=== PATIENT | male | born 1980 | race Caucasian/White ===

== ENCOUNTER 2018-09-16 00:31 | Inpatient (IN) | payer OTHER ==
[2018-09-16] MEDS ORDERED: ACETAMINOPHEN TAB 500 MG TAB PO STA (00:54)
[2018-09-16] MEDS ORDERED: IBUPROFEN 600 MG TAB PO STA (00:54)
[2018-09-16] MEDS ORDERED: DIAZEPAM 5 MG/ML 2 ML INJ IVP STA (01:51)
[2018-09-16] MEDS ORDERED: MORPHINE SULFATE 4 MG/ML SYRINGE IVP STA (01:51)
--- NOTE | 2018-09-16 01:56 | ED ---
General Adult HPI - General Source: patient Mode of arrival: ambulatory Limitations: no limitations <Liv Pickard - Last Filed: 09/16/18 03:58> <Deisy Cifuentes - Last Filed: 09/16/18 05:10> - General Chief complaint: Neck Pain/Injury Stated complaint: Neck Pain/Poss Flu Time Seen by Provider: 09/16/18 00:46 - History of Present Illness Initial comments: 37-year-old male patient presents to the emergency department today for evaluation of fever, headache, neck pain. Patient states that symptoms started 2 days ago with progressively worsening neck stiffness. Patient states that he last took Tylenol last evening around 8:00 PM. Denies any medications today. Patient states he has been nauseated but denies any vomiting. Denies any constipation or diarrhea. Denies any abdominal pain. Patient denies any cough, nasal congestion, sore throat, or rash. Denies any recent travel or sick contacts. Patient does report history of viral meningitis 10 years ago, states symptoms are similar. Patient denies any recent shortness breath, chest pain, back pain, numbness, tingling, dizziness, weakness, hematuria, dysuria, urinary urgency, urinary frequency, headache, visual changes, or any other complaints. (Liv Pickard) - Related Data Home Medications Medication Instructions Recorded Confirmed No Known Home Medications 09/16/18 09/16/18 Allergies Allergy/AdvReac Type Severity Reaction Status Date / Time No Known Allergies Allergy Verified 09/16/18 00:40 Review of Systems ROS Other: All systems not noted in ROS Statement are negative. <Liv Pickard - Last Filed: 09/16/18 03:58> ROS Other: All systems not noted in ROS Statement are negative. <Deisy Cifuentes - Last Filed: 09/16/18 05:10> ROS Statement: Those systems with pertinent positive or pertinent negative responses have been documented in the HPI. Past Medical History Past Medical History: No Reported History History of Any Multi-Drug Resistant Organisms: None Reported Past Surgical History: Appendectomy, Ear Surgery Past Psychological History: No Psychological Hx Reported Smoking Status: Current every day smoker Past Alcohol Use History: Occasional Past Drug Use History: None Reported <Liv Pickard - Last Filed: 09/16/18 03:58> General Exam Limitations: no limitations General appearance: alert, in no apparent distress, other (Physical well- developed, well-nourished adult male patient in no acute distress. Vital signs upon presentation are temperature 99.8F, pulse 109, respirations 20, blood pres sure 136/83, pulse ox 97% on room air.) Eye exam: Present: normal appearance, PERRL, EOMI. Absent: scleral icterus, conjunctival injection, periorbital swelling ENT exam: Present: normal exam, normal oropharynx, mucous membranes moist Neck exam: Present: normal inspection, meningismus. Absent: tenderness, lymphadenopathy Respiratory exam: Present: normal lung sounds bilaterally. Absent: respiratory distress, wheezes, rales, rhonchi, stridor Cardiovascular Exam: Present: regular rate, normal rhythm, normal heart sounds. Absent: systolic murmur, diastolic murmur, rubs, gallop, clicks GI/Abdominal exam: Present: soft, normal bowel sounds. Absent: distended, tenderness, guarding, rebound, rigid Neurological exam: Present: alert, oriented X3, CN II-XII intact Psychiatric exam: Present: normal affect, normal mood Skin exam: Present: warm, dry, intact, normal color. Absent: rash <Liv Pickard M - Last Filed: 09/16/18 03:58> Course Vital Signs 09/16/18 09/16/18 09/16/18 00:35 01:05 04:09 Temperature 99.8 F H 100.8 F H 101.5 F H Pulse Rate 109 H 91 Respiratory 20 20 Rate Blood Pressure 136/83 125/67 O2 Sat by Pulse 97 98 Oximetry Procedures - Lumbar Puncture Consent Obtained: verbal consent Indication for Procedure: headache, fever work up Patient Position: sitting upright/leaning forward Skin Prep: Povidone-Iodine 1% Local Anesthetic Used: Lidocaine 1% Spinal Needle Gauge: 20G Spinal Needle Length: 3.5in Interspace Used: L4-L5 Complications: unable to obtain CSF <Deisy Cifuentes - Last Filed: 09/16/18 05:10> Medical Decision Making - Lab Data Result diagrams: 09/16/18 01:50 09/16/18 01:50 - Radiology Data Radiology results: report reviewed, image reviewed <Liv Pickard - Last Filed: 09/16/18 03:58> - Lab Data Result diagrams: 09/16/18 01:50 09/16/18 01:50 <CifuentesDeisy P - Last Filed: 09/16/18 05:10> - Medical Decision Making 37-year-old male patient presented to the emergency department today for evaluation of fever and neck pain. Patient is also reporting headache does exhibit signs of meningismus on physical exam. The patient is neurologically intact with no focal deficits. Labs reviewed and did reveal elevated white blood cell count at 14,000. Chest x-ray did show evidence for possible pneumonia versus atelectasis in the right lower lobe. Patient's CT of the brain did reveal a hyperdense today and the right ventricle or occipital horn could be mass versus blood versus pus. Patient symptoms are consistent with meningitis, my attending did attempt to perform lumbar puncture, patient did not tolerate this well and CSF was not obtained. We did start vancomycin and Rocephin. Patient be admitted to the hospital for further evaluation and monitoring. (Liv Pickard) - Lab Data Lab Results 09/16/18 09/16/18 09/16/18 Range/Units 00:59 01:50 01:50 WBC 14.9 H (3.8-10.6) k/uL RBC 5.32 (4.30-5.90) m/uL Hgb 16.0 (13.0-17.5) gm/dL Hct 48.3 (39.0-53.0) % MCV 90.7 (80.0-100.0) fL MCH 30.2 (25.0-35.0) pg MCHC 33.2 (31.0-37.0) g/dL RDW 13.2 (11.5-15.5) % Plt Count 321 (150-450) k/uL Neutrophils % 69 % Lymphocytes % 22 % Monocytes % 6 % Eosinophils % 1 % Basophils % 0 % Neutrophils # 10.3 H (1.3-7.7) k/uL Lymphocytes # 3.3 (1.0-4.8) k/uL Monocytes # 0.9 (0-1.0) k/uL Eosinophils # 0.1 (0-0.7) k/uL Basophils # 0.1 (0-0.2) k/uL PT (9.0-12.0) sec INR (<1.2) APTT (22.0-30.0) sec Sodium 141 (137-145) mmol/L Potassium 4.1 (3.5-5.1) mmol/L Chloride 106 (98-107) mmol/L Carbon Dioxide 25 (22-30) mmol/L Anion Gap 10 mmol/L BUN 12 (9-20) mg/dL Creatinine 0.93 (0.66-1.25) mg/dL Est GFR (CKD-EPI)AfAm >90 (>60 ml/min/1.73 sqM) Est GFR (CKD-EPI)NonAf >90 (>60 ml/min/1.73 sqM) Glucose 109 H (74-99) mg/dL Plasma Lactic Acid Rob (0.7-2.0) mmol/L Calcium 9.9 (8.4-10.2) mg/dL Total Bilirubin 0.6 (0.2-1.3) mg/dL AST 27 (17-59) U/L ALT 77 H (21-72) U/L Alkaline Phosphatase 64 (38-126) U/L Total Protein 7.6 (6.3-8.2) g/dL Albumin 4.7 (3.5-5.0) g/dL Urine Color Urine Appearance (Clear) Urine pH (5.0-8.0) Ur Specific [place] (1.001-1.035) Urine Protein (Negative) Urine Glucose (UA) (Negative) Urine Ketones (Negative) Urine Blood (Negative) Urine Nitrite (Negative) Urine Bilirubin (Negative) Urine Urobilinogen (<2.0) mg/dL Ur Leukocyte Esterase (Negative) Influenza Type A RNA Not Detected (Not Detectd) Influenza Type B (PCR) Not Detected (Not Detectd) 09/16/18 09/16/18 09/16/18 Range/Units 01:50 01:50 01:50 WBC (3.8-10.6) k/uL RBC (4.30-5.90) m/uL Hgb (13.0-17.5) gm/dL Hct (39.0-53.0) % MCV (80.0-100.0) fL MCH (25.0-35.0) pg MCHC (31.0-37.0) g/dL RDW (11.5-15.5) % Plt Count (150-450) k/uL Neutrophils % % Lymphocytes % % Monocytes % % Eosinophils % % Basophils % % Neutrophils # (1.3-7.7) k/uL Lymphocytes # (1.0-4.8) k/uL Monocytes # (0-1.0) k/uL Eosinophils # (0-0.7) k/uL Basophils # (0-0.2) k/uL PT 9.5 (9.0-12.0) sec INR 0.9 (<1.2) APTT 23.6 (22.0-30.0) sec Sodium (137-145) mmol/L Potassium (3.5-5.1) mmol/L Chloride (98-107) mmol/L Carbon Dioxide (22-30) mmol/L Anion Gap mmol/L BUN (9-20) mg/dL Creatinine (0.66-1.25) mg/dL Est GFR (CKD-EPI)AfAm (>60 ml/min/1.73 sqM) Est GFR (CKD-EPI)NonAf (>60 ml/min/1.73 sqM) Glucose (74-99) mg/dL Plasma Lactic Acid Rob 1.3 (0.7-2.0) mmol/L Calcium (8.4-10.2) mg/dL Total Bilirubin (0.2-1.3) mg/dL AST (17-59) U/L ALT (21-72) U/L Alkaline Phosphatase (38-126) U/L Total Protein (6.3-8.2) g/dL Albumin (3.5-5.0) g/dL Urine Color Yellow Urine Appearance Clear (Clear) Urine pH 7.0 (5.0-8.0) Ur Specific [place] 1.022 (1.001-1.035) Urine Protein Negative (Negative) Urine Glucose (UA) Negative (Negative) Urine Ketones Negative (Negative) Urine Blood Negative (Negative) Urine Nitrite Negative (Negative) Urine Bilirubin Negative (Negative) Urine Urobilinogen <2.0 (<2.0) mg/dL Ur Leukocyte Esterase Negative (Negative) Influenza Type A RNA (Not Detectd) Influenza Type B (PCR) (Not Detectd) - Radiology Data 2 views of the chest are obtained. Report was reviewed in its entirety. Impression by Dr. Mccracken shows right lower lobe opacity, possibly pneumonia versus atelectasis. CT of the brain was obtained. Report was reviewed in its entirety. Impression by Dr. Mccracken shows hyperdensity within the right occipital horn/HMO the right lateral ventricle. Recommend MRI of the pain with contrast rule out blood, pus, mass, or large fibroxanthoma. (Liv Pickard) Disposition Decision to Admit Reason: Admit from EC Decision Date: 09/16/18 Decision Time: 03:53 <Liv Pickard - Last Filed: 09/16/18 03:58> <Deisy Cifuentes - Last Filed: 09/16/18 05:10> Clinical Impression: Meningitis Disposition: ADMITTED IP TO THIS [facility] Condition: Serious Referrals: Cesar Duvall DO [Primary Care Provider] - 1-2 days
--- NOTE | 2018-09-16 02:03 | XR ---
EXAM: XR Chest, 2 Views CLINICAL HISTORY: ITS.REASON XR Reason: Fever TECHNIQUE: Frontal and lateral views of the chest. COMPARISON: No relevant prior studies available. FINDINGS: Lungs: Increased opacity in the right lower lobe. Pleural space: No effusion. Heart: No cardiomegaly. Mediastinum: Unremarkable. Bones/joints: No acute findings. IMPRESSION: Right lower lobe opacity, possibly pneumonia versus atelectasis.
[2018-09-16] MEDS: SODIUM CHLORIDE 0.9% 500 ML 500 ML IV SCH (02:06)
[2018-09-16 02:15] LABS: Appearance,Urine Clear (Clear); Bilirubin,Urine Negative (Negative); Blood,Urine Negative (Negative); Color,Urine Yellow; Glucose,Urine (UA) Negative (Negative); Ketones,Urine Negative (Negative); Leukocyte Esterase,Urine Negative (Negative); Nitrite,Urine Negative (Negative); Protein,Urine Negative (Negative); Specific Gravity,Urine 1.022 (1.001-1.035); Urobilinogen,Urine <2.0 mg/dL (<2.0)
[2018-09-16 02:17] LABS: Basophils # (A) 0.1 k/uL (0-0.2); Basophils % (A) 0 %; Eosinophils # (A) 0.1 k/uL (0-0.7); Eosinophils % (A) 1 %; HCT 48.3 % (39.0-53.0); Lymphocytes # (A) 3.3 k/uL (1.0-4.8); Lymphocytes % (A) 22 %; MCH 30.2 pg (25.0-35.0); MCHC 33.2 g/dL (31.0-37.0); MCV 90.7 fL (80.0-100.0); Mean Platelet Volume 6.4; Monocytes # (A) 0.9 k/uL (0-1.0); Monocytes % (A) 6 %; Neutrophils # (A) 10.3 k/uL (1.3-7.7); Neutrophils % (A) 69 %; Platelet Count 321 k/uL (150-450); RBC 5.32 m/uL (4.30-5.90); RDW 13.2 % (11.5-15.5); WBC 14.9 k/uL (3.8-10.6)
[2018-09-16 02:24] LABS: ALT 77 U/L (21-72); AST 27 U/L (17-59); Albumin 4.7 g/dL (3.5-5.0); Alkaline Phosphatase 64 U/L (38-126); Anion Gap 10 mmol/L; Blood Urea Nitrogen 12 mg/dL (9-20); Calcium 9.9 mg/dL (8.4-10.2); Carbon Dioxide 25 mmol/L (22-30); Chloride 106 mmol/L (98-107); Glucose 109 mg/dL (74-99); Potassium 4.1 mmol/L (3.5-5.1); Sodium 141 mmol/L (137-145); Total Bilirubin 0.6 mg/dL (0.2-1.3); Total Protein 7.6 g/dL (6.3-8.2)
[2018-09-16 02:44] LABS: INR 0.9 (<1.2); Partial Thromboplastin Time 23.6 sec (22.0-30.0); Prothrombin Time 9.5 sec (9.0-12.0)
--- NOTE | 2018-09-16 03:08 | CT ---
EXAM: CT Head Without Intravenous Contrast CLINICAL HISTORY: ITS.REASON CT Reason: headache, concern for meningitis TECHNIQUE: Axial computed tomography images of the head/brain without intravenous contrast. CTDI is 49 mGy and DLP is 1054 mGy-cm. This CT exam was performed using one or more of the following dose reduction techniques: automated exposure control, adjustment of the mA and/or kV according to patient size, and/or use of iterative reconstruction technique. COMPARISON: CT 02/18/2014. FINDINGS: Brain: No hemorrhage, large hypodensity, or mass effect. Ventricles: No hydrocephalus. There is nonspecific hyperdensity within the right occipital horn/atrium. Bones/joints: Unremarkable. Soft tissues: Unremarkable. Sinuses: Unremarkable. Mastoid air cells: Clear. IMPRESSION: There is hyperdensity within the right occipital horn/atrium of the right lateral ventricle. Recommend MRI of the brain with contrast to rule out blood, pus, mass or a large fibroxanthoma. No acute hemorrhage, hydrocephalus, or mass effect. <MYCVCSECTION> [employer] 09/16/18 03:13 Call Doctor Regarding Above results, called Dr. Hermosillo on 09/16 03:12 (-04:00)
[2018-09-16] MEDS ORDERED: VANCOMYCIN IV PER PHARMACY 1 EACH MISC MISCELLANE PRN (03:50)
[2018-09-16] MEDS ORDERED: NALOXONE 0.4 MG/ML 1 ML VIAL IV PRN (03:50)
[2018-09-16] MEDS ORDERED: VANCOMYCIN 2,250 MG in SODIUM CHLORIDE 0.9% 500 ML 500 ML IVPB ONE (05:00)
[2018-09-16] MEDS: MORPHINE SULFATE 4 MG/ML SYRINGE IV PRN ×4 (06:05→22:32)
[2018-09-16] MEDS: ACETAMINOPHEN TAB 325 MG TAB PO PRN (09:35)
[2018-09-16] MEDS: AMPICILLIN 2,000 MG in SODIUM CHLORIDE 0.9% 100 ML IVPB SCH ×4 (14:01→21:47)
[2018-09-16] MEDS: ENOXAPARIN 40 MG/0.4 ML SYRINGE SQ SCH (14:01)
--- NOTE | 2018-09-16 14:23 | MR ---
EXAMINATION TYPE: MR brain wo/w con DATE OF EXAM: 09/16/2018 1:44 PM COMPARISON: CT scan of the brain dated 09/16/2018. HISTORY: meningitis symptoms with abnormal CT TECHNIQUE: Multiplanar, multiecho imaging of the brain was obtained with and without intravenous adm inistration of 13 mL intravenous Gadavist. FINDINGS: Midline structures are unremarkable. There is a normal craniocervical junction. There is some restricted diffusion in the occipital horn of the right lateral ventricle no other area s of restricted diffusion are identified. There are normal vascular flow voids. The lesion in the occipital horn of the right lateral ventricle contains signal voids in this may be vascular. The orbits are unremarkable. There is no evidence of a CP angle mass lesion. There is a 6 mm subcortical FLAIR lesion seen in the superior longitudinal fasciculus on the right. T his is of questionable etiology and significance. There is no mass effect, midline shift or intracranial blood. Following intravenous administration of gadolinium, there are draining veins extending from this lesi on. IMPRESSION: LESION IN THE OCCIPITAL HORN OF THE RIGHT LATERAL VENTRICLE MAY SIMPLY REPRESENT A PROMINENT DVA. I C OULD NOT EXCLUDE A DEVELOPING CHOROID PLEXUS PAPILLOMA.
--- NOTE | 2018-09-16 16:20 | P.CONS ---
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 The patient does relate to a history of about 10 years ago about of viral meningitis and because is felt so much like that he came to hospital quickly. When he was ill in the past to give him 3-4 days to see care and he was quite miserable for some time. The patient relates extremity feel a bit better this afternoon after hydration some pain control. The headache and neck stiffness are starting to improve. He has been febrile but is denying significant rigors. He is having other difficulties such as sinus discomfort. He similar discomforts in his chest no cough or sputum production. Denies abdominal pain. Denies nausea emesis constipation and diarrhea. He's had no urinary symptoms with burning or discomfort. 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 Review of Systems HEENT:as per the HPI significant headache and some neck stiffness that is starting to improve. He has no significant new sinus symptoms but does have a history of significant sinus disease. He does not have significant difficulty in the oral cavity or swallowing Lungs: Denies significant shortness of breath, cough, sputum production, or hemoptysis. Cardiovascular: Denies significant shortness of breath, chest pain, chest wall pain, orthopnea, dyspnea on exertion, syncope Gastrointestinal:Denies nausea, vomiting, diarrhea, constipation, hematemesis, melena, hematochezia. No no significant change of bowel habit noticed. Musculoskeletal: denies significant myalgias or arthralgias. No new joint swelling. Denies new back pain. Skin: Denies new rash or lesions. No new ulcers or wounds are related.. Neuro: Denies headache or visual change. Denies any new onset weakness or difficulty with ambulation. Denies falls or seizures. Psychiatric:Denies anxiety or depression. Endocrine: Denies significant fatigue, denies significant weight loss or weight gain. Past Medical History Past Medical History: No Reported History Additional Past Medical History / Comment(s): Viral meningitis 10 years ago History of Any Multi-Drug Resistant Organisms: None Reported Past Surgical History: Appendectomy, Ear Surgery Past Anesthesia/Blood Transfusion Reactions: No Reported Reaction Past Psychological History: No Psychological Hx Reported Smoking Status: Current every day smoker Past Alcohol Use History: Occasional Additional Past Alcohol Use History / Comment(s): . 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 No recent international travel. No animals in the home. Ill contacts or only at the work environment Past Drug Use History: None Reported Medications and Allergies Home Medications and Allergies Comment(s): Current Medications Acetaminophen (Tylenol Tab) 650 mg PO Q6HR PRN PRN Reason: Mild Pain or Fever > 100.5 Last Admin: 09/16/18 09:35 Dose: 650 mg Documented by: Enoxaparin Sodium (Lovenox) 40 mg SQ DAILY LAQUITA Last Admin: 09/16/18 14:01 Dose: 40 mg Documented by: Vancomycin HCl 1,750 mg/ (Sodium Chloride) 500 mls @ 167 mls/hr IVPB Q8H LAQUITA Ampicillin Sodium 2,000 mg/ (Sodium Chloride) 100 mls @ 200 mls/hr IVPB Q4HR LAQUITA Last Admin: 09/16/18 14:01 Dose: 200 mls/hr Documented by: Ceftriaxone Sodium 2 gm/ (Sodium Chloride) 50 mls @ 100 mls/hr IVPB Q12HR LAQUITA Last Admin: 09/16/18 15:02 Dose: 100 mls/hr Documented by: Acyclovir Sodium 1,000 mg/ (Sodium Chloride) 270 mls @ 270 mls/hr IVPB Q8HR LAQUITA Morphine Sulfate (Morphine Sulfate (Inj)) 4 mg IV Q4HR PRN PRN Reason: Severe Pain Last Admin: 09/16/18 10:51 Dose: 4 mg Documented by: Naloxone HCl (Narcan) 0.2 mg IV Q2M PRN PRN Reason: Opioid Reversal Home Medications Medication Instructions Recorded Confirmed Type No Known Home Medications 09/16/18 09/16/18 History Allergies Allergy/AdvReac Type Severity Reaction Status Date / Time No Known Allergies Allergy Verified 09/16/18 00:40 Physical Exam Vitals: Vital Signs Temp Pulse Pulse Resp BP BP Pulse Ox 09/16/18 12:10 97.9 F 70 20 111/62 94 L 09/16/18 06:31 99.7 F H 86 18 135/61 96 09/16/18 06:09 101.2 F H 89 20 136/77 95 09/16/18 04:09 101.5 F H 91 20 125/67 98 09/16/18 01:05 100.8 F H 09/16/18 00:35 99.8 F H 109 H 20 136/83 97 Intake and Output 09/16/18 09/16/18 09/16/18 06:59 14:59 22:59 Intake Total 1050 500 Balance 1050 500 Intake: Amount of Fluid Infused ( 1050 ml) Intake, IV Titration 500 Amount Vancomycin 1,750 mg In 500 Sodium Chloride 0.9% 500 ml 500 ml @ 167 mls/hr IVPB Q8H [facility] Rx#: [id number] Other: Weight 127.006 kg 37-year-old male in no acute distress but does complain of improving headache HEENT: Anicteric conjunctiva are pink and moist nasal mucosa grossly intact without significant lesions, there is no thrush. Neck: The neck is supple without significant lymphadenopathy or thyromegaly. Lungs: symmetrical air entry is noted, rare expiratory wheezes are scattered but no vince bronchial sounds with dullness or egophony Heart: Regular rate and rhythm with an audible S1-S2, no S3 no S4. There is no significant murmur click or rub, PMI was nondisplaced. Abdomen: obese,Positive bowel sounds soft and nontender without palpable masses or organomegaly. There was no guarding or rebound. Extremities: The upper extremities have excellent pulses they are symmetric, no significant petechiae or telangiectasia. No splinter hemorrhages were noted. The lower extremities are free from significant edema. The peripheral pulses were 2+ and symmetric.patient does have a large muscular build Neuro: Awake alert oriented to person place and time. There are no acute new gross focal sensory motor deficits. Results CBC & Chem 7: 09/16/18 01:50 09/16/18 01:50 Labs: Abnormal Lab Results - Last 24 Hours (Table) 09/16/18 09/16/18 Range/Units 01:50 01:50 WBC 14.9 H (3.8-10.6) k/uL Neutrophils # 10.3 H (1.3-7.7) k/uL Glucose 109 H (74-99) mg/dL ALT 77 H (21-72) U/L Microbiology - Last 24 Hours (Table) 09/16/18 01:50 Urine Culture - Preliminary Urine,Clean Catch Laboratory Results WBC 14.9 k/uL (3.8-10.6) H 09/16/18 01:50 RBC 5.32 m/uL (4.30-5.90) 09/16/18 01:50 Hgb 16.0 gm/dL (13.0-17.5) 09/16/18 01:50 Hct 48.3 % (39.0-53.0) 09/16/18 01:50 MCV 90.7 fL (80.0-100.0) 09/16/18 01:50 MCH 30.2 pg (25.0-35.0) 09/16/18 01:50 MCHC 33.2 g/dL (31.0-37.0) 09/16/18 01:50 RDW 13.2 % (11.5-15.5) 09/16/18 01:50 Plt Count 321 k/uL (150-450) 09/16/18 01:50 Neutrophils % 69 % 09/16/18 01:50 Lymphocytes % 22 % 09/16/18 01:50 Monocytes % 6 % 09/16/18 01:50 Eosinophils % 1 % 09/16/18 01:50 Basophils % 0 % 09/16/18 01:50 Neutrophils # 10.3 k/uL (1.3-7.7) H 09/16/18 01:50 Lymphocytes # 3.3 k/uL (1.0-4.8) 09/16/18 01:50 Monocytes # 0.9 k/uL (0-1.0) 09/16/18 01:50 Eosinophils # 0.1 k/uL (0-0.7) 09/16/18 01:50 Basophils # 0.1 k/uL (0-0.2) 09/16/18 01:50 PT 9.5 sec (9.0-12.0) 09/16/18 01:50 INR 0.9 (<1.2) 09/16/18 01:50 APTT 23.6 sec (22.0-30.0) 09/16/18 01:50 Sodium 141 mmol/L (137-145) 09/16/18 01:50 Potassium 4.1 mmol/L (3.5-5.1) 09/16/18 01:50 Chloride 106 mmol/L (98-107) 09/16/18 01:50 Carbon Dioxide 25 mmol/L (22-30) 09/16/18 01:50 Anion Gap 10 mmol/L 09/16/18 01:50 BUN 12 mg/dL (9-20) 09/16/18 01:50 Creatinine 0.93 mg/dL (0.66-1.25) 09/16/18 01:50 Est GFR (CKD-EPI)AfAm >90 (>60 ml/min/1.73 sqM) 09/16/18 01:50 Est GFR (CKD-EPI)NonAf >90 (>60 ml/min/1.73 sqM) 09/16/18 01:50 Glucose 109 mg/dL (74-99) H 09/16/18 01:50 Plasma Lactic Acid Rob 1.3 mmol/L (0.7-2.0) 09/16/18 01:50 Calcium 9.9 mg/dL (8.4-10.2) 09/16/18 01:50 Total Bilirubin 0.6 mg/dL (0.2-1.3) 09/16/18 01:50 AST 27 U/L (17-59) 09/16/18 01:50 ALT 77 U/L (21-72) H 09/16/18 01:50 Alkaline Phosphatase 64 U/L (38-126) 09/16/18 01:50 Total Protein 7.6 g/dL (6.3-8.2) 09/16/18 01:50 Albumin 4.7 g/dL (3.5-5.0) 09/16/18 01:50 Urine Color Yellow 09/16/18 01:50 Urine Appearance Clear (Clear) 09/16/18 01:50 Urine pH 7.0 (5.0-8.0) 09/16/18 01:50 Ur Specific [place] 1.022 (1.001-1.035) 09/16/18 01:50 Urine Protein Negative (Negative) 09/16/18 01:50 Urine Glucose (UA) Negative (Negative) 09/16/18 01:50 Urine Ketones Negative (Negative) 09/16/18 01:50 Urine Blood Negative (Negative) 09/16/18 01:50 Urine Nitrite Negative (Negative) 09/16/18 01:50 Urine Bilirubin Negative (Negative) 09/16/18 01:50 Urine Urobilinogen <2.0 mg/dL (<2.0) 09/16/18 01:50 Ur Leukocyte Esterase Negative (Negative) 09/16/18 01:50 Influenza Type A RNA Not Detected (Not Detectd) 09/16/18 00:59 Influenza Type B (PCR) Not Detected (Not Detectd) 09/16/18 00:59 Microbiology 09/16/18 01:50 Urine,Clean Catch Urine Culture - Preliminary MRI - head: report reviewed (choroid plexus papilloma is of concern no other acute abnormalities are seen) Assessment and Plan (1) Meningitis Current Visit: Yes Status: Acute Code(s): G03.9 - MENINGITIS, UNSPECIFIED SNOMED Code(s): 8862419 (2) Fever Narrative/Plan: 37-year-old male presents to hospital with relatively sudden onset of headache with some significant discomfort within his neck and neck stiffness and that associated with fever. Because of his history of 10 years ago of viral meningitis he was concerned about recurrence because presented to emergency room typically quickly after the onset of his symptoms. In emergency center for a temperature lumbar puncture were performed. Given his large muscular size they were not successful. Interventional radiology has been requested for guided lumbar puncture. Antibiotic therapy has been initiated and is appropriate. However antiviral th erapy will be added pending further data at time of the lumbar puncture. CT and MRI failed reveal evidence of hydrocephalus and consequently competition from a choroid plexus papilloma seems to be quite unlikely at this point in time. Outpatient follow-up will be scheduled regarding this change. And a lumbar puncture opening pressure should be obtained to further evaluate the possibility of early hydrocephalus. We will request the patient's family to bring in his BiPAP device to help with sleep apnea.blood cultures are pending. Current Visit: Yes Status: Acute Code(s): R50.9 - FEVER, UNSPECIFIED SN OMED Code(s): 213517496 (3) Headache Current Visit: Yes Status: Acute Code(s): R51 - HEADACHE SNOMED Code(s): 46479672 (4) Obstructive sleep apnea Current Visit: Yes Status: Acute Code(s): G47.33 - OBSTRUCTIVE SLEEP APNEA (ADULT) (PEDIATRIC) SNOMED Code(s): 09954676
[2018-09-16] MEDS: VANCOMYCIN 1,750 MG in SODIUM CHLORIDE 0.9% 500 ML 500 ML IVPB SCH ×2 (16:40→22:29)
[2018-09-16] MEDS: ACYCLOVIR SODIUM 1,000 MG in SODIUM CHLORIDE 0.9% 250 ML IVPB SCH (17:38)
--- NOTE | 2018-09-16 19:45 | HP ---
HISTORY AND PHYSICAL DATE OF ADMISSION: 09/16/2018 DATE OF SERVICE: 09/16/2018 PRESENTING COMPLAINT: Fever, chills, neck stiffness. HISTORY OF PRESENTING COMPLAINT: This is a very pleasant 37-year-old patient of Dr. Duvall who is pretty much in good health. The patient did, about 10 years ago, have an episode of what he thinks was a viral meningitis. The patient yesterday started aching all over. Started developing chills, neck stiffness, fever. The patient sat in a dark room in the house and the sunlight was bothering him, though patient states for 1 or 2 weeks he has had some nausea, has been feeling unwell. The patient has a [id number] baby at home who has got a slight cough. The patient was given ceftriaxone in the ER and vancomycin. The patient does feel a shade better. Some attempts were made at a lumbar puncture in the ER but on unsuccessfully. Earlier today Dr. Manning from [place] was consulted. The patient did have some abnormality on the CT scan. I did order an MRI of the brain that shows more of a vascular phenomena. REVIEW OF SYSTEMS: CONSTITUTIONAL: Fever, chills. HEENT: Headache, some photophobia. RESPIRATORY: No respiratory symptoms. CARDIOVASCULAR: None. GASTROINTESTINAL: None. GENITOURINARY: None. MUSCULOSKELETAL: Some neck stiffness. DERMATOLOGICAL: None. HEMATOLOGIC: None. LYMPHATIC: None. PSYCHIATRY: None. NEUROLOGICAL: As above. No focal symptoms. PAST MEDICAL HISTORY: Viral meningitis 10 years ago. PAST SURGICAL HISTORY: Appendectomy, ear surgery. SOCIAL HISTORY: The patient lives with ex and kids. 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 Alcohol occasionally. Does smoke. FAMILY HISTORY: Reviewed, noncontributory presentation. HOME MEDICATIONS: None. ALLERGIES: None. On examination temperature 101.2, pulse 69, respiration 20, blood pressure 136/77, pulse ox 95% on room air. GENERAL APPEARANCE: Well built, BMI 36.9 A bit tired appearing. EYES: Pupils equal. Conjunctivae normal. HENT: External appearance of nose and ears normal. Oral cavity normal. NECK: JVD not raised. Mass not palpable. Respiratory effort normal. LUNGS: Fair air entry. CARDIOVASCULAR: First and second sounds normal. No edema. ABDOMEN: Soft, nontender. Liver and spleen not palpable. LYMPHATICS: No lymph node palpable in neck or axilla. PSYCHIATRY: Alert and oriented x3. Mood and affect slightly tired-appearing. NEUROLOGICAL: Pupils equal. No facial asymmetry. The patient has got neck stiffness, not able to touch his chin to the chest. INVESTIGATIONS: White count 14.9, hemoglobin 16, potassium 4.1. BUN and creatinine is normal. UA negative. Influenza A and B is negative. CT scan of the brain, hyperdensity in the right occipital horn atrium of the right lateral ventricle. MRI of the brain shows lesion in the occipital horn of the right lateral ventricle ( ) contrast. Appears to be more vascular. Chest x-ray film personally reviewed by me shows a bit of an expiratory film with questionable infiltrate right lower base. ASSESSMENT: 1. Patient presents with fever, chills, myalgia, photophobia, neck stiffness, symptoms clinically compatible with acute meningitis. Lumbar puncture was attempted in the ER 3 or 4 times, could not be done. MRI shows possibly a vascular lesion, could be venous. The patient has been started on IV ceftriaxone, vancomycin and ampicillin. Dr. Manning is on the case for Infectious Disease. 2. Obesity, 36.9. 3. Questionable pneumonia on the chest x-ray, though patient has really no respiratory symptoms. PLAN: Continue with current antibiotics. Further input from Dr. Manning. Depending on the clinical course, LP could be done under fluoroscopy. In the meantime, will also add acyclovir. KORINA / JIGNA: [id number] /
[2018-09-17] MEDS: ACYCLOVIR SODIUM 1,000 MG in SODIUM CHLORIDE 0.9% 250 ML IVPB SCH ×3 (00:25→15:46)
[2018-09-17] MEDS: ACETAMINOPHEN TAB 325 MG TAB PO PRN ×3 (00:25→22:15)
[2018-09-17] MEDS: AMPICILLIN 2,000 MG in SODIUM CHLORIDE 0.9% 100 ML IVPB SCH ×5 (02:15→20:28)
[2018-09-17] MEDS: MORPHINE SULFATE 4 MG/ML SYRINGE IV PRN ×3 (02:18→10:33)
[2018-09-17] MEDS: VANCOMYCIN 1,750 MG in SODIUM CHLORIDE 0.9% 500 ML 500 ML IVPB SCH ×2 (06:07→15:26)
[2018-09-17 08:10] LABS: ALT 64 U/L (21-72); AST 21 U/L (17-59); Albumin 3.8 g/dL (3.5-5.0); Alkaline Phosphatase 56 U/L (38-126); Anion Gap 9 mmol/L; Blood Urea Nitrogen 10 mg/dL (9-20); Calcium 8.9 mg/dL (8.4-10.2); Carbon Dioxide 23 mmol/L (22-30); Chloride 106 mmol/L (98-107); Glucose 90 mg/dL (74-99); Potassium 4.1 mmol/L (3.5-5.1); Sodium 138 mmol/L (137-145); Total Bilirubin 0.7 mg/dL (0.2-1.3); Total Protein 6.5 g/dL (6.3-8.2)
[2018-09-17 08:14] LABS: Basophils # (A) 0.1 k/uL (0-0.2); Basophils % (A) 1 %; Eosinophils # (A) 0.3 k/uL (0-0.7); Eosinophils % (A) 2 %; HCT 45.1 % (39.0-53.0); HGB 15.4 gm/dL (13.0-17.5); Lymphocytes # (A) 5.1 k/uL (1.0-4.8); MCH 30.9 pg (25.0-35.0); MCV 90.9 fL (80.0-100.0); Mean Platelet Volume 6.6; Monocytes % (A) 8 %; Neutrophils # (A) 6.5 k/uL (1.3-7.7); Neutrophils % (A) 49 %; Platelet Count 267 k/uL (150-450); RBC 4.96 m/uL (4.30-5.90); RDW 13.1 % (11.5-15.5); WBC 13.1 k/uL (3.8-10.6)
[2018-09-17] MEDS: ENOXAPARIN 40 MG/0.4 ML SYRINGE SQ SCH (08:31)
[2018-09-17 10:21] LABS: Lymphocytes % (A) 39 %
[2018-09-17] MEDS ORDERED: VANCOMYCIN TROUGH DUE 1 EACH MISC MISCELLANE ONE (13:00)
--- NOTE | 2018-09-17 13:42 | P.PN ---
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 The patient does relate to a history of about 10 years ago about of viral meningitis and because is felt so much like that he came to hospital quickly. When he was ill in the past to give him 3-4 days to see care and he was quite miserable for some time. The patient relates extremity feel a bit better this afternoon after hydration some pain control. The headache and neck stiffness are starting to improve. He has been febrile but is denying significant rigors. He is having other difficulties such as sinus discomfort. He similar discomforts in his chest no cough or sputum production. Denies abdominal pain. Denies nausea emesis constipation and diarrhea. He's had no urinary symptoms with burning or discomfort. 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 09/17/2018 the patient was feeling a bit better yesterday afternoon but again is feeling more poorly this afternoon. Headaches continue bit worse. Although he relates his thinking is not clear. I walk in the room and is dark however he is watching TV with agree difficulties. Family has brought his BiPAP unit and relates that he slept considerably better last night.does not believe that he is having chills or rigors low-grade fever only. Objective - Vital Signs Vital signs: Vital Signs Temp 98.2 F 09/17/18 12:39 Pulse 66 09/17/18 12:39 Resp 20 09/17/18 12:39 BP 119/61 09/17/18 12:39 Pulse Ox 95 09/17/18 12:39 Intake & Output 09/16/18 09/17/18 09/17/18 18:59 06:59 18:59 Intake Total 500 1150 Balance 500 1150 Intake: Intake, IV Titration 500 1150 Amount Acyclovir Sodium 1,000 mg 350 In Sodium Chloride 0.9% 250 ml @ 270 mls/hr IVPB Q8HR [facility] Rx#:[id number] Ampicillin 2,000 mg In 200 Sodium Chloride 0.9% 100 ml @ 200 mls/hr IVPB Q4H [facility] Rx#:[id number] Vancomycin 1,750 mg In 500 500 Sodium Chloride 0.9% 500 ml 500 ml @ 167 mls/hr IVPB Q8H [facility] Rx#: [id number] cefTRIAXone 2 gm In 100 Sodium Chloride 0.9% 50 ml @ 100 mls/hr IVPB Q12HR [facility] Rx#:[id number] Other: Voiding Method Toilet Toilet # Voids 1 - Exam 37-year-old male in no acute distress but does complain of improving headache HEENT: Anicteric conjunctiva are pink and moist nasal mucosa grossly intact wi thout significant lesions, there is no thrush. Neck: The neck is supple without significant lymphadenopathy or thyromegaly. Lungs: symmetrical air entry is noted, rare expiratory wheezes are scattered but no vince bronchial sounds with dullness or egophony Heart: Regular rate and rhythm with an audible S1-S2, no S3 no S4. There is no significant murmur click or rub, PMI was nondisplaced. Abdomen: obese,Positive bowel sounds soft and nontender without palpable masses or organomegaly. There was no guarding or rebound. Extremities: The upper extremities have excellent pulses they are symmetric, no significant petechiae or telangiectasia. No splinter hemorrhages were noted. The lower extremities are free from significant edema. The peripheral pulses were 2+ and symmetric.patient does have a large muscular build Neuro: Awake alert oriented to person place and time. There are no acute new gross focal sensory motor deficits. - Labs CBC & Chem 7: 09/17/18 06:52 09/17/18 06:52 Labs: Abnormal Lab Results - Last 24 Hours (Table) 09/17/18 Range/Units 06:52 WBC 13.1 H (3.8-10.6) k/uL Lymphocytes # 5.1 H (1.0-4.8) k/uL Microbiology - Last 24 Hours (Table) 09/16/18 01:50 Blood Culture - Preliminary Blood No Growth after 24 hours 09/16/18 01:50 Urine Culture - Preliminary Urine,Clean Catch Laboratory Results WBC 13.1 k/uL (3.8-10.6) H 09/17/18 06:52 RBC 4.96 m/uL (4.30-5.90) 09/17/18 06:52 Hgb 15.4 gm/dL (13.0-17.5) 09/17/18 06:52 Hct 45.1 % (39.0-53.0) 09/17/18 06:52 MCV 90.9 fL (80.0-100.0) 09/17/18 06:52 MCH 30.9 pg (25.0-35.0) 09/17/18 06:52 MCHC 34.0 g/dL (31.0-37.0) 09/17/18 06:52 RDW 13.1 % (11.5-15.5) 09/17/18 06:52 Plt Count 267 k/uL (150-450) 09/17/18 06:52 Neutrophils % 49 % 09/17/18 06:52 Lymphocytes % 39 % 09/17/18 06:52 Monocytes % 8 % 09/17/18 06:52 Eosinophils % 2 % 09/17/18 06:52 Basophils % 1 % 09/17/18 06:52 Neutrophils # 6.5 k/uL (1.3-7.7) 09/17/18 06:52 Lymphocytes # 5.1 k/uL (1.0-4.8) H 09/17/18 06:52 Monocytes # 1.0 k/uL (0-1.0) 09/17/18 06:52 Eosinophils # 0.3 k/uL (0-0.7) 09/17/18 06:52 Basophils # 0.1 k/uL (0-0.2) 09/17/18 06:52 PT 9.5 sec (9.0-12.0) 09/16/18 01:50 INR 0.9 (<1.2) 09/16/18 01:50 APTT 23.6 sec (22.0-30.0) 09/16/18 01:50 Sodium 138 mmol/L (137-145) 09/17/18 06:52 Potassium 4.1 mmol/L (3.5-5.1) 09/17/18 06:52 Chloride 106 mmol/L (98-107) 09/17/18 06:52 Carbon Dioxide 23 mmol/L (22-30) 09/17/18 06:52 Anion Gap 9 mmol/L 09/17/18 06:52 BUN 10 mg/dL (9-20) 09/17/18 06:52 Creatinine 0.74 mg/dL (0.66-1.25) 09/17/18 06:52 Est GFR (CKD-EPI)AfAm >90 (>60 ml/min/1.73 sqM) 09/17/18 06:52 Est GFR (CKD-EPI)NonAf >90 (>60 ml/min/1.73 sqM) 09/17/18 06:52 Glucose 90 mg/dL (74-99) 09/17/18 06:52 Plasma Lactic Acid Rob 1.3 mmol/L (0.7-2.0) 09/16/18 01:50 Calcium 8.9 mg/dL (8.4-10.2) 09/17/18 06:52 Total Bilirubin 0.7 mg/dL (0.2-1.3) 09/17/18 06:52 AST 21 U/L (17-59) 09/17/18 06:52 ALT 64 U/L (21-72) 09/17/18 06:52 Alkaline Phosphatase 56 U/L (38-126) 09/17/18 06:52 Total Protein 6.5 g/dL (6.3-8.2) 09/17/18 06:52 Albumin 3.8 g/dL (3.5-5.0) 09/17/18 06:52 Procalcitonin 0.03 ng/mL (0.02-0.09) 09/16/18 16:00 Urine Color Yellow 09/16/18 01:50 Urine Appearance Clear (Clear) 09/16/18 01:50 Urine pH 7.0 (5.0-8.0) 09/16/18 01:50 Ur Specific Bud 1.022 (1.001-1.035) 09/16/18 01:50 Urine Protein Negative (Negative) 09/16/18 01:50 Urine Glucose (UA) Negative (Negative) 09/16/18 01:50 Urine Ketones Negative (Negative) 09/16/18 01:50 Urine Blood Negative (Negative) 09/16/18 01:50 Urine Nitrite Negative (Negative) 09/16/18 01:50 Urine Bilirubin Negative (Negative) 09/16/18 01:50 Urine Urobilinogen <2.0 mg/dL (<2.0) 09/16/18 01:50 Ur Leukocyte Esterase Negative (Negative) 09/16/18 01:50 Influenza Type A RNA Not Detected (Not Detectd) 09/16/18 00:59 Influenza Type B (PCR) Not Detected (Not Detectd) 09/16/18 00:59 Microbiology 09/16/18 01:50 Blood Blood Culture - Preliminary No Growth after 24 hours 09/16/18 01:50 Urine,Clean Catch Urine Culture - Preliminary Assessment and Plan (1) Meningitis Current Visit: Yes Status: Acute Code(s): G03.9 - MENINGITIS, UNSPECIFIED SNOMED Code(s): 3014001 (2) Fever Narrative/Plan: 37-year-old male presents to hospital with relatively sudden onset of headache with some significant discomfort within his neck and neck stiffness and that associated with fever. Because of his history of 10 years ago of viral meningitis he was concerned about recurrence because presented to emergency room typically quickly after the onset of his symptoms. In emergency center for a temperature lumbar puncture were performed. Given his large muscular size they were not successful. Interventional radiology has been requested for guided lumbar puncture. Antibiotic therapy has been initiated and is appropriate. However antiviral therapy will be added pending further data at time of the lumbar puncture. CT and MRI failed reveal evidence of hydrocephalus and consequently competition from a choroid plexus papilloma seems to be quite unlikely at this point in time . Outpatient follow-up will be scheduled regarding this change. And a lumbar puncture opening pressure should be obtained to further evaluate the possibility of early hydrocephalus. We will request the patient's family to bring in his BiPAP device to help with sleep apnea.blood cultures are pending. 09/17/2018 patient was feeling a bit better now again is having some worsening of the headache. The patient's interventional radiology lumbar puncture is still being planned. Ensuring an opening pressure is obtained has been requested given the likelihood of the choroid plexus papilloma. Routine studies of course will also be helpful. Given that he has had one prior bout PCR for HSV 1HSV2 were also requested. continue current antibiotic and antiviral therapy pending a lumbar puncture. Plan nicotine patch in that his worsening headache could be related somewhat to his nicotine withdrawal. Toradol will also be added to try to improve his discomforts. Current Visit: Yes Status: Acute Code(s): R50.9 - FEVER, UNSPECIFIED SNOMED Code(s): 851034741 (3) Headache Current Visit: Yes Status: Acute Code(s): R51 - HEADACHE SNOMED Code(s): 27239202 (4) Obstructive sleep apnea Current Visit: Yes Status: Acute Code(s): G47.33 - OBSTRUCTIVE SLEEP APNEA (ADULT) (PEDIATRIC) SNOMED Code(s): 12006717
[2018-09-17] MEDS: NICOTINE 14MG/24HR PATCH TRANSDERM SCH (14:41)
[2018-09-17] MEDS: KETOROLAC 30 MG/ML 1 ML VIAL IVP SCH ×2 (14:41→17:26)
[2018-09-17] MEDS: VANCOMYCIN 2,000 MG in SODIUM CHLORIDE 0.9% 500 ML 500 ML IVPB SCH ×2 (15:46→23:13)
--- NOTE | 2018-09-17 23:50 | PN ---
PROGRESS NOTE DATE OF SERVICE: September 17, 2018. PRESENTING COMPLAINT: Headaches. INTERVAL HISTORY: This patient admitted with clinical picture of meningitis. A lumbar puncture was unsuccessful in the ER. The patient's fevers have been down. Did tolerate some diet. Headache is still present. Neck stiffness has greatly improved. Looks a bit more cheerful. REVIEW OF SYSTEMS: Done for constitutional, cardiovascular, GI, pulmonary; relevant findings as above. Photophobia is greatly improved. CURRENT MEDICATIONS: Reviewed that include IV acyclovir, IV ampicillin, IV ceftriaxone, IV vancomycin. EXAMINATION: VITAL SIGNS: Afebrile. Pulse 67, respiration 20, blood pressure 109/61, pulse ox 95% on room air. GENERAL APPEARANCE: Lying in bed, a bit more awake. EYES: Pupils equal. Conjunctivae normal. NECK: JVD not raised. Mass not palpable. RESPIRATORY: Effort normal. LUNGS are clear. CARDIOVASCULAR: First and second sounds normal. No edema. ABDOMEN: Soft, nontender. Liver and spleen not palpable. NEUROLOGICAL: No neck stiffness. INVESTIGATIONS: White count 13.1, potassium 4.1. ASSESSMENT: 1. Acute meningitis. At this point, cannot tell if it is vascular or viral. 2. Obesity BMI 36.9. 3. Venous abnormality in the right lateral ventricle. PLAN: Care was discussed with Dr. Manning. We will schedule Interventional Radiology to do a lumbar puncture including PCR for HSV will be requested. In the meantime, patient is clinically looking better. Care was discussed with the patient. Follow. MMODL / IJN: [id number] /
[2018-09-18] MEDS: ACYCLOVIR SODIUM 1,000 MG in SODIUM CHLORIDE 0.9% 250 ML IVPB SCH ×3 (00:15→16:13)
[2018-09-18] MEDS: KETOROLAC 30 MG/ML 1 ML VIAL IVP SCH ×5 (00:16→23:59)
[2018-09-18] MEDS: AMPICILLIN 2,000 MG in SODIUM CHLORIDE 0.9% 100 ML IVPB SCH ×7 (02:24→22:10)
[2018-09-18] MEDS: ACETAMINOPHEN TAB 325 MG TAB PO PRN ×2 (05:05→12:53)
[2018-09-18] MEDS: VANCOMYCIN 2,000 MG in SODIUM CHLORIDE 0.9% 500 ML 500 ML IVPB SCH ×2 (06:48→16:13)
[2018-09-18] MEDS: NICOTINE 14MG/24HR PATCH TRANSDERM SCH (08:28)
[2018-09-18] MEDS: MORPHINE SULFATE 4 MG/ML SYRINGE IV PRN (13:04)
--- NOTE | 2018-09-18 15:18 | FL ---
"EXAMINATION TYPE: FL guided lumbar puncture LP DATE OF EXAM: 09/18/2018 COMPARISON: NONE HISTORY: History of bacterial meningitis 10 years ago with recurrent severe acute headache on admissi on 2-3 days earlier. TECHNIQUE: Fluoroscopic assisted lumbar puncture. FINDINGS: Fluoroscopic guidance was provided during lumbar puncture procedure performed by myself. A total of 34 seconds of fluoroscopic time was utilized during the procedure and 0 spot images are ac quired. Procedure is explained to patient. Informed consent is obtained. Overlying skin is cleansed with Beta dine. Using fluoroscopic guidance under paraspinal approach L3 level is targeted with successful firs t passage into spinal canal. Opening pressure is measured over 55 mmHg, our meter does not record past this number. At this point fluid is collected as requested. Fluid is cloudy throughout. Then needle is withdrawn. Patient tolerated procedure well without any immediate complication. Patient was sent back to floor f or further monitoring. Vital signs were monitored before during and after procedure and stable. IMPRESSION: Successful fluoroscopic assisted lumbar puncture for fluid attainment. Elevated opening p ressures with cloudy CSF fluid obtained grossly. Full pathology results to follow. A Yellow level critical message alert has been initiated for Drew Dan MD via the Milk 36 0 | Critical Results System on 09/18/2018 3:15 PM. This message alert has been sent to Drew Dan MD via the preferences provided by the clinician for the receipt of Radiology Critical Findings. Mess age ID [id number]."
[2018-09-18 18:13] LABS: Glucose,CSF 50 mg/dL (40-70); Total Protein,CSF 81 mg/dL (12-60)
[2018-09-18 18:26] LABS: Appearance,CSF Blood Tinged; CSF Tube Number 4; CSF Tube Volume 6; Nucleated Cells, CSF 70 u/L (0-5); Red Blood Cell,CSF 4145 u/L (0-10)
[2018-09-18 18:37] LABS: Diff, Total Cells Cnt, CSF 100; Mononuclear WBC,CSF 83 %; Polynuclear WBC,CSF 17 %; Red Blood Cell, CSF Crenated 0 %; Red Blood Cell, CSF Fresh 100 %
--- NOTE | 2018-09-18 20:50 | PN ---
PROGRESS NOTE DATE OF SERVICE: 09/18/2018 PRESENTING COMPLAINT: Headache. INTERVAL HISTORY: This patient was admitted with fever, headache, neck stiffness. I saw this patient this morning. He is feeling better. Headache is much improved. Neck stiffness much improved. Did tolerate some diet. More awake. Overall feeling much better. Fevers have been down. Patient is due to go down for lumbar puncture this afternoon. REVIEW OF SYSTEMS: Done for constitutional, cardiovascular, GI, pulmonary; relevant findings as above. Overall doing much better. CURRENT MEDICATIONS: Reviewed. They include: 1. IV acyclovir. 2. Ampicillin. 3. Ceftriaxone. 4. Vancomycin. PHYSICAL EXAMINATION: Temperature 98.2, pulse 66, respirations 16, blood pressure 122/63, pulse ox 97% on room air. GENERAL APPEARANCE: Lying in bed, far more awake. Looking better. EYES: Pupils equal. Conjunctivae normal. NECK: JVD not raised. Mass not palpable. RESPIRATORY: Effort normal. Lungs are clear. CARDIOVASCULAR: First and second sounds normal. No edema. ABDOMEN: Soft, non-tender. Liver and spleen not palpable. PSYCHIATRY: Alert and oriented x3. Mood and affect normal. Neck stiffness has resolved. INVESTIGATIONS: CSF fluid came back this evening showing RBC 4145, total nucleated cells 70, CSF protein 81, glucose 50. CSF Gram stain showing many polymorphonuclear leukocytes. ASSESSMENT: 1. Acute meningitis, possibly bacterial, given the cloudy fluid, and it may be noted that this CSF is already after receiving 24 hours of antibiotics. 2. Obesity with body mass index 36.9. 3. Venous abnormality in the right lateral ventricle. PLAN: I did inform Dr. Manning of the initial CSF cloudy finding. He will follow up on the same. The patient is well covered with current antibiotics and is clinically doing better. Will continue with the same. Further titration of antibiotics based on Gram stain and culture. Repeat labs in the morning. Will follow. MMODL / IJN: [id number] /
--- NOTE | 2018-09-18 22:55 | P.PN ---
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 The patient does relate to a history of about 10 years ago about of viral meningitis and because is felt so much like that he came to hospital quickly. When he was ill in the past to give him 3-4 days to see care and he was quite miserable for some time. The patient relates extremity feel a bit better this afternoon after hydration some pain control. The headache and neck stiffness are starting to improve. He has been febrile but is denying significant rigors. He is having other difficulties such as sinus discomfort. He similar discomforts in his chest no cough or sputum production. Denies abdominal pain. Denies nausea emesis constipation and diarrhea. He's had no urinary symptoms with burning or discomfort. 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 09/17/2018 the patient was feeling a bit better yesterday afternoon but again is feeling more poorly this afternoon. Headaches continue bit worse. Although he relates his thinking is not clear. I walk in the room and is dark however he is watching TV with agree difficulties. Family has brought his BiPAP unit and relates that he slept considerably better last night.does not believe that he is having chills or rigors low-grade fever only. 09/18/2018 status post lumbar puncture patient is feeling considerably better. The significant and severe headache is improved. Appetite is improved. Denies any acute neurological problems. No further fevers. Is currently supine post procedure to prevent postprocedural headache. Objective - Vital Signs Vital signs: Vital Signs Temp 98.2 F 09/18/18 21:00 Pulse 80 09/18/18 21:00 Resp 18 09/18/18 21:00 BP 122/59 09/18/18 21:00 Pulse Ox 97 09/18/18 21:00 Intake & Output 09/18/18 09/18/18 09/19/18 06:59 18:59 06:59 Intake Total 100 100 Balance 100 100 Intake: Intake, IV Titration 100 100 Amount Ampicillin 2,000 mg In 100 100 Sodium Chloride 0.9% 100 ml @ 200 mls/hr IVPB Q4H [facility] Rx#:[id number] Other: Voiding Method Toilet Toilet # Voids 1 2 - Exam 37-year-old male in no acute distress but does complain of improving headache HEENT: Anicteric conjunctiva are pink and moist nasal mucosa grossly intact without significant lesions, there is no thrush. Neck: The neck is supple without significant lymphadenopathy or thyromegaly. Lungs: symmetrical air entry is noted, rare expiratory wheezes are scattered but no vince bronchial sounds with dullness or egophony Heart: Regular rate and rhythm with an audible S1-S2, no S3 no S4. There is no significant murmur click or rub, PMI was nondisplaced. Abdomen: obese,Positive bowel sounds soft and nontender without palpable masses or organomegaly. There was no guarding or rebound. Extremities: The upper extremities have excellent pulses they are symmetric, no significant petechiae or telangiectasia. No splinter hemorrhages were noted. The lower extremities are free from significant edema. The peripheral pulses were 2+ and symmetric.patient does have a large muscular build Neuro: Awake alert oriented to person place and time. There are no acute new gross focal sensory motor deficits. - Labs CBC & Chem 7: 09/17/18 06:52 09/17/18 06:52 Labs: Abnormal Lab Results - Last 24 Hours (Table) 09/18/18 Range/Units 14:50 CSF RBC 4145 H (0-10) u/L CSF Tot Nucleated Cells 70 H* (0-5) u/L CSF Total Protein 81 H (12-60) mg/dL Microbiology - Last 24 Hours (Table) 09/18/18 14:05 Anaerobic Culture - Preliminary Cerebral Spinal Fluid 09/18/18 14:50 CSF Gram Stain - Preliminary Cerebral Spinal Fluid 09/16/18 01:50 Blood Culture - Preliminary Blood No Growth after 48 hours Laboratory Results WBC 13.1 k/uL (3.8-10.6) H 09/17/18 06:52 RBC 4.96 m/uL (4.30-5.90) 09/17/18 06:52 Hgb 15.4 gm/dL (13.0-17.5) 09/17/18 06:52 Hct 45.1 % (39.0-53.0) 09/17/18 06:52 MCV 90.9 fL (80.0-100.0) 09/17/18 06:52 MCH 30.9 pg (25.0-35.0) 09/17/18 06:52 MCHC 34.0 g/dL (31.0-37.0) 09/17/18 06:52 RDW 13.1 % (11.5-15.5) 09/17/18 06:52 Plt Count 267 k/uL (150-450) 09/17/18 06:52 Neutrophils % 49 % 09/17/18 06:52 Lymphocytes % 39 % 09/17/18 06:52 Monocytes % 8 % 09/17/18 06:52 Eosinophils % 2 % 09/17/18 06:52 Basophils % 1 % 09/17/18 06:52 Neutrophils # 6.5 k/uL (1.3-7.7) 09/17/18 06:52 Lymphocytes # 5.1 k/uL (1.0-4.8) H 09/17/18 06:52 Monocytes # 1.0 k/uL (0-1.0) 09/17/18 06:52 Eosinophils # 0.3 k/uL (0-0.7) 09/17/18 06:52 Basophils # 0.1 k/uL (0-0.2) 09/17/18 06:52 PT 9.5 sec (9.0-12.0) 09/16/18 01:50 INR 0.9 (<1.2) 09/16/18 01:50 APTT 23.6 sec (22.0-30.0) 09/16/18 01:50 Sodium 138 mmol/L (137-145) 09/17/18 06:52 Potassium 4.1 mmol/L (3.5-5.1) 09/17/18 06:52 Chloride 106 mmol/L (98-107) 09/17/18 06:52 Carbon Dioxide 23 mmol/L (22-30) 09/17/18 06:52 Anion Gap 9 mmol/L 09/17/18 06:52 BUN 10 mg/dL (9-20) 09/17/18 06:52 Creatinine 0.74 mg/dL (0.66-1.25) 09/17/18 06:52 Est GFR (CKD-EPI)AfAm >90 (>60 ml/min/1.73 sqM) 09/17/18 06:52 Est GFR (CKD-EPI)NonAf >90 (>60 ml/min/1.73 sqM) 09/17/18 06:52 Glucose 90 mg/dL (74-99) 09/17/18 06:52 Plasma Lactic Acid Rob 1.3 mmol/L (0.7-2.0) 09/16/18 01:50 Calcium 8.9 mg/dL (8.4-10.2) 09/17/18 06:52 Total Bilirubin 0.7 mg/dL (0.2-1.3) 09/17/18 06:52 AST 21 U/L (17-59) 09/17/18 06:52 ALT 64 U/L (21-72) 09/17/18 06:52 Alkaline Phosphatase 56 U/L (38-126) 09/17/18 06:52 Total Protein 6.5 g/dL (6.3-8.2) 09/17/18 06:52 Albumin 3.8 g/dL (3.5-5.0) 09/17/18 06:52 Procalcitonin 0.03 ng/mL (0.02-0.09) 09/16/18 16:00 Urine Color Yellow 09/16/18 01:50 Urine Appearance Clear (Clear) 09/16/18 01:50 Urine pH 7.0 (5.0-8.0) 09/16/18 01:50 Ur Specific [place] 1.022 (1.001-1.035) 09/16/18 01:50 Urine Protein Negative (Negative) 09/16/18 01:50 Urine Glucose (UA) Negative (Negative) 09/16/18 01:50 Urine Ketones Negative (Negative) 09/16/18 01:50 Urine Blood Negative (Negative) 09/16/18 01:50 Urine Nitrite Negative (Negative) 09/16/18 01:50 Urine Bilirubin Negative (Negative) 09/16/18 01:50 Urine Urobilinogen <2.0 mg/dL (<2.0) 09/16/18 01:50 Ur Leukocyte Esterase Negative (Negative) 09/16/18 01:50 CSF Tube Number 4 09/18/18 14:50 CSF Volume 6 09/18/18 14:50 CSF Appearance Blood Tinged 09/18/18 14:50 CSF Color [place] 09/18/18 14:50 CSF RBC 4145 u/L (0-10) H 09/18/18 14:50 CSF Tot Nucleated Cells 70 u/L (0-5) H* 09/18/18 14:50 CSF Mononuclear WBCs % 83 % 09/18/18 14:50 CSF Polynuclear WBCs % 17 % 09/18/18 14:50 CSF Crenated Cells 0 % 09/18/18 14:50 CSF Fresh RBCs 100 % 09/18/18 14:50 CSF Glucose 50 mg/dL (40-70) 09/18/18 14:50 CSF Total Protein 81 mg/dL (12-60) H 09/18/18 14:50 Vancomycin Trough 13.6 ug/mL 09/17/18 13:19 Influenza Type A RNA Not Detected (Not Detectd) 09/16/18 00:59 Influenza Type B (PCR) Not Detected (Not Detectd) 09/16/18 00:59 Microbiology 09/18/18 14:05 Cerebral Spinal Fluid Anaerobic Culture - Preliminary 09/18/18 14:50 Cerebral Spinal Fluid CSF Gram Stain - Preliminary 09/16/18 01:50 Blood Blood Culture - Preliminary No Growth after 48 hours 09/16/18 01:50 Urine,Clean Catch Urine Culture - Final Assessment and Plan (1) Meningitis Current Visit: Yes Status: Acute Code(s): G03.9 - MENINGITIS, UNSPECIFIED SNOMED Code(s): 4224789 (2) Fever Narrative/Plan: 37-year-old male presents to hospital with relatively sudden onset of headache with some significant discomfort within his neck and neck stiffness and that associated with fever. Because of his history of 10 years ago of viral meningitis he was concerned about recurrence because presented to emergency room typically quickly after the onset of his symptoms. In emergency center for a temperature lumbar puncture were performed. Given his large muscular size they were not successful. Interventional radiology has been requested for guided lumbar puncture. Antibiotic therapy has been initiated and is appropriate. However antiviral therapy will be added pending further data at time of the lumbar puncture. CT and MRI failed reveal evidence of hydrocephalus and consequently competition from a choroid plexus papilloma seems to be quite unlikely at this point in time. Outpatient follow-up will be scheduled regarding this change. And a lumbar puncture opening pressure should be obtained to further evaluate the possibility of early hydrocephalus. We will request the patient's family to bring in his BiPAP device to help with sleep apnea.blood cultures are pending. 09/17/2018 patient was feeling a bit better now again is having some worsening of the headache. The patient's interventional radiology lumbar puncture is still being planned. Ensuring an opening pressure is obtained has been requested given the likelihood of the choroid plexus papilloma. Routine studies of course will also be helpful. Given that he has had one prior bout PCR for HSV 1HSV2 were also requested. continue current antibiotic and antiviral therapy pending a lumbar puncture. Plan nicotine patch in that his worsening headache could be related somewhat to his nicotine withdrawal. Toradol will also be added to try to improve his discomforts. 09/18/2018 lumbar puncture has been performed and has allowed some relief of his headache. Studies are pending. Opening pressure was greater than 55. 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 However difficult to explain the fever at admission. Bacterial viral and fungal cultures are pending at this time. Continue current antibiotic and antiviral therapy. Current Visit: Yes Status: Acute Code(s): R50.9 - FEVER, UNSPECIFIED SNOMED Code(s): 420101901 (3) Headache Current Visit: Yes Status: Acute Code(s): R51 - HEADACHE SNOMED Code(s): 37140412 (4) Obstructive sleep apnea Current Visit: Yes Status: Acute Code(s): G47.33 - OBSTRUCTIVE SLEEP APNEA (ADULT) (PEDIATRIC) SNOMED Code(s): 21781860
[2018-09-19] MEDS: ACYCLOVIR SODIUM 1,000 MG in SODIUM CHLORIDE 0.9% 250 ML IVPB SCH ×2 (01:06→08:31)
[2018-09-19] MEDS: MORPHINE SULFATE 4 MG/ML SYRINGE IV PRN ×2 (02:56→07:54)
[2018-09-19] MEDS: AMPICILLIN 2,000 MG in SODIUM CHLORIDE 0.9% 100 ML IVPB SCH ×6 (03:02→21:23)
[2018-09-19] MEDS: KETOROLAC 30 MG/ML 1 ML VIAL IVP SCH ×4 (06:27→23:10)
[2018-09-19 08:20] LABS: Basophils # (A) 0.1 k/uL (0-0.2); Basophils % (A) 1 %; Eosinophils # (A) 0.3 k/uL (0-0.7); Eosinophils % (A) 3 %; HCT 44.3 % (39.0-53.0); HGB 15.1 gm/dL (13.0-17.5); Lymphocytes # (A) 2.9 k/uL (1.0-4.8); Lymphocytes % (A) 28 %; MCH 30.8 pg (25.0-35.0); MCHC 34.1 g/dL (31.0-37.0); MCV 90.5 fL (80.0-100.0); Mean Platelet Volume 6.5; Monocytes # (A) 0.6 k/uL (0-1.0); Monocytes % (A) 6 %; Neutrophils # (A) 6.3 k/uL (1.3-7.7); Neutrophils % (A) 60 %; Platelet Count 308 k/uL (150-450); RBC 4.89 m/uL (4.30-5.90); RDW 12.9 % (11.5-15.5); WBC 10.4 k/uL (3.8-10.6)
[2018-09-19] MEDS: VANCOMYCIN 2,000 MG in SODIUM CHLORIDE 0.9% 500 ML 500 ML IVPB SCH ×5 (08:31→23:10)
[2018-09-19] MEDS: NICOTINE 14MG/24HR PATCH TRANSDERM SCH (08:32)
[2018-09-19 08:33] LABS: ALT 93 U/L (21-72); AST 40 U/L (17-59); Albumin 3.9 g/dL (3.5-5.0); Alkaline Phosphatase 52 U/L (38-126); Anion Gap 7 mmol/L; Blood Urea Nitrogen 9 mg/dL (9-20); Calcium 9.3 mg/dL (8.4-10.2); Carbon Dioxide 24 mmol/L (22-30); Chloride 108 mmol/L (98-107); Glucose 89 mg/dL (74-99); Potassium 4.2 mmol/L (3.5-5.1); Sodium 139 mmol/L (137-145); Total Bilirubin 0.6 mg/dL (0.2-1.3); Total Protein 6.4 g/dL (6.3-8.2)
--- NOTE | 2018-09-19 14:22 | PN ---
PROGRESS NOTE DATE OF SERVICE: 09/19/2018 PRESENTING COMPLAINT: Meningitis. INTERVAL HISTORY: Patient admitted with acute meningitis, confirmed by CSF after the spinal tap. headache is actually increased, more so when he sits up. Otherwise, patient tolerating a diet. Fevers down, just tired. patient's ex- with whom the patient lives is present there. REVIEW OF SYSTEMS: Done for constitutional, cardiovascular, GI, pulmonary; relevant findings as above. CURRENT MEDICATIONS: Reviewed that include IV ampicillin, IV ceftriaxone, IV vancomycin. PHYSICAL EXAMINATION: Afebrile, pulse 70, respiration 17, blood pressure 123/72, pulse ox 98% on room air. GENERAL APPEARANCE: Lying in bed, awake, a bit tired. EYES: Pupils equal, conjunctivae normal. NECK: JVD not raised. Mass not palpable. RESPIRATORY: Effort normal. LUNGS: Clear. CARDIOVASCULAR: First and second sounds normal, no edema. ABDOMEN: Soft, nontender. Liver and spleen not palpable. PSYCHIATRY: Alert and oriented x3, mood and affect normal. NEUROLOGICAL: No neck stiffness. INVESTIGATIONS: White count 10.4, hemoglobin 15.1, potassium 4.2. Herpes simplex virus PCR negative, CSF Gram stain showing many leukocytes. ASSESSMENT: 1. Acute bacterial meningitis with clinical improvement. 2. Post spinal tap headache/spinal headache. 3. Obesity, body mass index 36.9. 4. Chronic venous abnormality in the right lateral ventricle. PLAN: The patient will be put on IV fluids, 150 mL/hour should help with the headaches. Clinically, he is improving, increased oral intake. Care was discussed with the patient. Continue with antibiotics, await cultures. MMODL / IJN: [id number] /
[2018-09-19] MEDS: LACTATED RINGERS 1,000 ML IV SCH ×2 (16:41→20:34)
[2018-09-19] MEDS: ENOXAPARIN 40 MG/0.4 ML SYRINGE SQ SCH (16:41)
[2018-09-19] MEDS: ACETAMINOPHEN TAB 325 MG TAB PO PRN (20:24)
--- NOTE | 2018-09-19 22:07 | P.PN ---
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 The patient does relate to a history of about 10 years ago about of viral meningitis and because is felt so much like that he came to hospital quickly. When he was ill in the past to give him 3-4 days to see care and he was quite miserable for some time. The patient relates extremity feel a bit better this afternoon after hydration some pain control. The headache and neck stiffness are starting to improve. He has been febrile but is denying significant rigors. He is having other difficulties such as sinus discomfort. He similar discomforts in his chest no cough or sputum production. Denies abdominal pain. Denies nausea emesis constipation and diarrhea. He's had no urinary symptoms with burning or discomfort. 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 09/17/2018 the patient was feeling a bit better yesterday afternoon but again is feeling more poorly this afternoon. Headaches continue bit worse. Although he relates his thinking is not clear. I walk in the room and is dark however he is watching TV with agree difficulties. Family has brought his BiPAP unit and relates that he slept considerably better last night.does not believe that he is having chills or rigors low-grade fever only. 09/18/2018 status post lumbar puncture patient is feeling considerably better. The significant and severe headache is improved. Appetite is improved. Denies any acute neurological problems. No further fevers. Is currently supine post procedure to prevent postprocedural headache. 09/19/2018 patient is feeling considerably better today. Did have a bit of a postprocedural headache yesterday which is resolving today. He sitting upright to have his lunch without difficulty. She's having no nausea or emesis. Headaches are improved. Fever has improved. No new neurological complaint. Objective - Vital Signs Vital signs: Vital Signs Temp 98.0 F 09/19/18 21:00 Pulse 70 09/19/18 21:00 Resp 18 09/19/18 21:00 BP 134/81 09/19/18 21:00 Pulse Ox 97 09/19/18 21:00 Intake & Output 09/19/18 09/19/18 09/20/18 06:59 18:59 06:59 Intake Total 690 2760 Balance 690 2760 Intake: Intake, IV Titration 100 1800 Amount Acyclovir Sodium 1,000 mg 250 In Sodium Chloride 0.9% 250 ml @ 270 mls/hr IVPB Q8HR [facility] Rx#:[id number] Ampicillin 2,000 mg In 100 200 Sodium Chloride 0.9% 100 ml @ 200 mls/hr IVPB Q4H [facility] Rx#:[id number] Lactated Ringers 1,000 ml 300 @ 150 mls/hr IV .Q6H40M [facility] Rx#:[id number] Vancomycin 2,000 mg In 1000 Sodium Chloride 0.9% 500 ml 500 ml @ 167 mls/hr IVPB Q8H [facility] Rx#: [id number] cefTRIAXone 2 gm In 50 Sodium Chloride 0.9% 50 ml @ 100 mls/hr IVPB Q12HR [facility] Rx#:[id number] Oral 590 960 Other: Voiding Method Toilet Toilet # Voids 2 4 - Exam 37-year-old male in no acute distress but does complain of improving headache HEENT: Anicteric conjunctiva are pink and moist nasal mucosa grossly intact without significant lesions, there is no thrush. Neck: The neck is supple without significant lymphadenopathy or thyromegaly. Lungs: symmetrical air entry is noted, rare expiratory wheezes are scattered but no vince bronchial sounds with dullness or egophony Heart: Regular rate and rhythm with an audible S1-S2, no S3 no S4. There is no significant murmur click or rub, PMI was nondisplaced. Abdomen: obese,Positive bowel sounds soft and nontender without palpable masses or organomegaly. There was no guarding or rebound. Extremities: The upper extremities have excellent pulses they are symmetric, no significant petechiae or telangiectasia. No splinter hemorrhages were noted. The lower extremities are free from significant edema. The peripheral pulses were 2+ and symmetric.patient does have a large muscular build Neuro: Awake alert oriented to person place and time. There are no acute new gross focal sensory motor deficits. - Labs CBC & Chem 7: 09/19/18 07:52 09/19/18 07:52 Labs: Abnormal Lab Results - Last 24 Hours (Table) 09/19/18 Range/Units 07:52 Chloride 108 H (98-107) mmol/L ALT 93 H (21-72) U/L Microbiology - Last 24 Hours (Table) 09/16/18 01:50 Blood Culture - Preliminary Blood No Growth after 72 hours 09/18/18 14:50 CSF Gram Stain - Preliminary Cerebral Spinal Fluid 09/18/18 14:05 Anaerobic Culture - Preliminary Cerebral Spinal Fluid Laboratory Results WBC 10.4 k/uL (3.8-10.6) 09/19/18 07:52 RBC 4.89 m/uL (4.30-5.90) 09/19/18 07:52 Hgb 15.1 gm/dL (13.0-17.5) 09/19/18 07:52 Hct 44.3 % (39.0-53.0) 09/19/18 07:52 MCV 90.5 fL (80.0-100.0) 09/19/18 07:52 MCH 30.8 pg (25.0-35.0) 09/19/18 07:52 MCHC 34.1 g/dL (31.0-37.0) 09/19/18 07:52 RDW 12.9 % (11.5-15.5) 09/19/18 07:52 Plt Count 308 k/uL (150-450) 09/19/18 07:52 Neutrophils % 60 % 09/19/18 07:52 Lymphocytes % 28 % 09/19/18 07:52 Monocytes % 6 % 09/19/18 07:52 Eosinophils % 3 % 09/19/18 07:52 Basophils % 1 % 09/19/18 07:52 Neutrophils # 6.3 k/uL (1.3-7.7) 09/19/18 07:52 Lymphocytes # 2.9 k/uL (1.0-4.8) 09/19/18 07:52 Monocytes # 0.6 k/uL (0-1.0) 09/19/18 07:52 Eosinophils # 0.3 k/uL (0-0.7) 09/19/18 07:52 Basophils # 0.1 k/uL (0-0.2) 09/19/18 07:52 PT 9.5 sec (9.0-12.0) 09/16/18 01:50 INR 0.9 (<1.2) 09/16/18 01:50 APTT 23.6 sec (22.0-30.0) 09/16/18 01:50 Sodium 139 mmol/L (137-145) 09/19/18 07:52 Potassium 4.2 mmol/L (3.5-5.1) 09/19/18 07:52 Chloride 108 mmol/L (98-107) H 09/19/18 07:52 Carbon Dioxide 24 mmol/L (22-30) 09/19/18 07:52 Anion Gap 7 mmol/L 09/19/18 07:52 BUN 9 mg/dL (9-20) 09/19/18 07:52 Creatinine 0.72 mg/dL (0.66-1.25) 09/19/18 07:52 Est GFR (CKD-EPI)AfAm >90 (>60 ml/min/1.73 sqM) 09/19/18 07:52 Est GFR (CKD-EPI)NonAf >90 (>60 ml/min/1.73 sqM) 09/19/18 07:52 Glucose 89 mg/dL (74-99) 09/19/18 07:52 Plasma Lactic Acid Rob 1.3 mmol/L (0.7-2.0) 09/16/18 01:50 Calcium 9.3 mg/dL (8.4-10.2) 09/19/18 07:52 Total Bilirubin 0.6 mg/dL (0.2-1.3) 09/19/18 07:52 AST 40 U/L (17-59) 09/19/18 07:52 ALT 93 U/L (21-72) H 09/19/18 07:52 Alkaline Phosphatase 52 U/L (38-126) 09/19/18 07:52 Total Protein 6.4 g/dL (6.3-8.2) 09/19/18 07:52 Albumin 3.9 g/dL (3.5-5.0) 09/19/18 07:52 Procalcitonin 0.03 ng/mL (0.02-0.09) 09/16/18 16:00 Urine Color Yellow 09/16/18 01:50 Urine Appearance Clear (Clear) 09/16/18 01:50 Urine pH 7.0 (5.0-8.0) 09/16/18 01:50 Ur Specific [place] 1.022 (1.001-1.035) 09/16/18 01:50 Urine Protein Negative (Negative) 09/16/18 01:50 Urine Glucose (UA) Negative (Negative) 09/16/18 01:50 Urine Ketones Negative (Negative) 09/16/18 01:50 Urine Blood Negative (Negative) 09/16/18 01:50 Urine Nitrite Negative (Negative) 09/16/18 01:50 Urine Bilirubin Negative (Negative) 09/16/18 01:50 Urine Urobilinogen <2.0 mg/dL (<2.0) 09/16/18 01:50 Ur Leukocyte Esterase Negative (Negative) 09/16/18 01:50 CSF Tube Number 4 09/18/18 14:50 CSF Volume 6 09/18/18 14:50 CSF Appearance Blood Tinged 09/18/18 14:50 CSF Color [place] 09/18/18 14:50 CSF RBC 4145 u/L (0-10) H 09/18/18 14:50 CSF Tot Nucleated Cells 70 u/L (0-5) H* 09/18/18 14:50 CSF Mononuclear WBCs % 83 % 09/18/18 14:50 CSF Polynuclear WBCs % 17 % 09/18/18 14:50 CSF Crenated Cells 0 % 09/18/18 14:50 CSF Fresh RBCs 100 % 09/18/18 14:50 CSF Glucose 50 mg/dL (40-70) 09/18/18 14:50 CSF Total Protein 81 mg/dL (12-60) H 09/18/18 14:50 Vancomycin Trough 15.2 ug/mL 09/18/18 22:36 HSV I DNA PCR Not detected (Not detected) 09/18/18 12:00 HSV II DNA PCR Not detected (Not detected) 09/18/18 12:00 HSV (PCR) Source 09/18/18 12:00 Influenza Type A RNA Not Detected (Not Detectd) 09/16/18 00:59 Influenza Type B (PCR) Not Detected (Not Detectd) 09/16/18 00:59 Microbiology 09/16/18 01:50 Blood Blood Culture - Preliminary No Growth after 72 hours 09/18/18 14:50 Cerebral Spinal Fluid CSF Gram Stain - Preliminary 09/18/18 14:05 Cerebral Spinal Fluid Anaerobic Culture - Preliminary 09/16/18 01:50 Urine,Clean Catch Urine Culture - Final Assessment and Plan (1) Meningitis Current Visit: Yes Status: Acute Code(s): G03.9 - MENINGITIS, UNSPECIFIED SNOMED Code(s): 8876559 (2) Fever Narrative/Plan: 37-year-old male presents to hospital with relatively sudden onset of headache with some significant discomfort within his neck and neck stiffness and that associated with fever. Because of his history of 10 years ago of viral meningitis he was concerned about recurrence because presented to emergency room typically quickly after the onset of his symptoms. In emergency center for a temperature lumbar puncture were performed. Given his large muscular size they were not successful. Interventional radiology has been requested for guided lumbar puncture. Antibiotic therapy has been initiated and is appropriate. However antiviral therapy will be added pending further data at time of the lumbar puncture. CT and MRI failed reveal evidence of hydrocephalus and consequently competition from a choroid plexus papilloma seems to be quite unlikely at this point in time. Outpatient follow-up will be scheduled regarding this change. And a lumbar puncture opening pressure should be obtained to further evaluate the possibility of early hydrocephalus. We will request the patient's family to bring in his BiPAP device to help with sleep apnea.blood cultures are pending. 09/17/2018 patient was feeling a bit better now again is having some worsening of the headache. The patient's interventional radiology lumbar puncture is still being planned. Ensuring an opening pressure is obtained has been requested given the likelihood of the choroid plexus papilloma. Routine studies of course will also be helpful. Given that he has had one prior bout PCR for HSV 1HSV2 were also requested. continue current antibiotic and antiviral therapy pending a lumbar puncture. Plan nicotine patch in that his worsening headache could be related somewhat to his nicotine withdrawal. Toradol will also be added to try to improve his discomforts. 09/18/2018 lumbar puncture has been performed and has allowed some relief of his headache. Studies are pending. Opening pressure was greater than 55. 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 However difficult to explain the fever at admission. Bacterial viral and fungal cultures are pending at this time. Continue current antibiotic and antiviral therapy. 09/19/2018 the patient is feeling somewhat better today. His headache did improve after the lumbar puncture, did increase a bit last evening but is better today. He is able to sit upright and have his lunch. He denies other acute complaints at this time. No further fevers. Workup remains in progress. HSV 1 and 2 was negative by PCR and acyclovir was discontinued. Antibiotic is otherwise are continuing at this time while the CSF workup is in progress. Given the markedly elevated CSF pressure neurology consult has been requested given the choroid plexus papilloma and next steps might be indicated. Current Visit: Yes Status: Acute Code(s): R50.9 - FEVER, UNSPECIFIED SNOMED Code(s): 328676686 (3) Headache Current Visit: Yes Status: Acute Code(s): R51 - HEADACHE SNOMED Code(s): 32145197 (4) Obstructive sleep apnea Current Visit: Yes Status: Acute Code(s): G47.33 - OBSTRUCTIVE SLEEP APNEA (ADULT) (PEDIATRIC) SNOMED Code(s): 92988297
[2018-09-20] MEDS: AMPICILLIN 2,000 MG in SODIUM CHLORIDE 0.9% 100 ML IVPB SCH ×6 (02:31→22:41)
[2018-09-20] MEDS: MORPHINE SULFATE 4 MG/ML SYRINGE IV PRN ×2 (02:32→09:41)
[2018-09-20] MEDS: LACTATED RINGERS 1,000 ML IV SCH ×4 (05:01→23:19)
[2018-09-20] MEDS: ACETAMINOPHEN TAB 325 MG TAB PO PRN ×2 (05:03→16:06)
[2018-09-20] MEDS: VANCOMYCIN 2,000 MG in SODIUM CHLORIDE 0.9% 500 ML 500 ML IVPB SCH ×3 (06:20→23:29)
[2018-09-20] MEDS: KETOROLAC 30 MG/ML 1 ML VIAL IVP SCH ×4 (06:20→23:29)
[2018-09-20] MEDS: NICOTINE 14MG/24HR PATCH TRANSDERM SCH (08:32)
[2018-09-20] MEDS: ENOXAPARIN 40 MG/0.4 ML SYRINGE SQ SCH (08:32)
[2018-09-20 09:38] LABS: Anion Gap 9 mmol/L; Blood Urea Nitrogen 9 mg/dL (9-20); Calcium 9.3 mg/dL (8.4-10.2); Carbon Dioxide 24 mmol/L (22-30); Chloride 106 mmol/L (98-107); Glucose 130 mg/dL (74-99); Potassium 3.8 mmol/L (3.5-5.1); Sodium 139 mmol/L (137-145)
--- NOTE | 2018-09-20 18:04 | P.CNNES ---
History of Present Illness Consult date: 09/20/18 Reason for Consult: Meningitis History of Present Illness: Patient is a 37-year-old male who states that he started having headache at around 10 AM on 09/15/2018. Patient works at midnight shift. He got out of work at 7:30 AM on Tuesday, came home, noticed some neck stiffness and a headache at around 10 AM. He went to sleep from 10:30 AM to 12:30 PM, woke up more intense neck pain, stiffness and a headache. He took Flexeril and Tylenol. However the headache kept on getting worse. He also noticed fever, chills, hands and feet feeling ice cold. He went to ER at around shortly after midnight on Tuesday. Patient had a computed tomography scan of head, which revealed hyperdensity within the right occipital horns/atrium of the right lateral ventricle. MRI recommended. MRI of the brain showed lesion in the occipital horn of the right lateral ventricle, may simply represent a prominent DVA. I could not exclude a developing choroid plexus papilloma. Patient had a lumbar puncture performed under fluoroscopy, in which his opening pressure was 55 mmHg WBC is 70, with 83% mononuclear, 17% polynuclear cells. RBCs are 4145. Glucose is 50, protein 81. HSV-1 and 2 PCR came back negative. Patient's CBC showed WBC 14.9, hemoglobin 16.0 and platelets 321. Chem-20 is normal. PT/PTT normal, influenza screen negative. Patient states that he had history of a viral meningitis 10 years ago. Patient states that prior to this current meningitis, he gets headache about once every couple weeks, this last only for up to hours and resolves after he tries to sleep it off. He does not have chronic headaches. No visual issues. Patient smokes one pack per day since age 14. Rarely drinks alcohol. Review of Systems Positive for headaches, fever, neck pain otherwise all negative. Past Medical History Past Medical History: No Reported History Additional Past Medical History / Comment(s): Viral meningitis 10 years ago History of Any Multi-Drug Resistant Organisms: None Reported Past Surgical History: Appendectomy, Ear Surgery Past Anesthesia/Blood Transfusion Reactions: No Reported Reaction Past Psychological History: No Psychological Hx Reported Smoking Status: Current every day smoker Past Alcohol Use History: Occasional Additional Past Alcohol Use History / Comment(s): . 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 No recent international travel. No animals in the home. Ill contacts or only at the work environment Past Drug Use History: None Reported Medications and Allergies Home Medications Medication Instructions Recorded Confirmed Type No Known Home Medications 09/16/18 09/16/18 History Allergies Allergy/AdvReac Type Severity Reaction Status Date / Time No Known Allergies Allergy Verified 09/16/18 00:40 Physical Examination - Vital Signs Vital Signs: Vital Signs Temp Pulse Resp BP BP Pulse Ox 09/20/18 16:08 98 09/20/18 15:50 68 16 09/20/18 11:41 97.3 F L 68 16 122/67 97 09/20/18 08:00 65 18 09/20/18 04:48 98.4 F 65 18 134/89 98 09/19/18 23:25 70 18 09/19/18 21:00 98.0 F 70 18 134/81 97 Intake and Output 09/20/18 09/20/18 09/20/18 06:59 14:59 22:59 Intake Total 590 3540 Balance 590 3540 Intake: Intake, IV Titration 2500 Amount Ampicillin 2,000 mg In 200 Sodium Chloride 0.9% 100 ml @ 200 mls/hr IVPB Q4H [facility] Rx#:[id number] Lactated Ringers 1,000 ml 1800 @ 150 mls/hr IV .Q6H40M [facility] Rx#:[id number] Vancomycin 2,000 mg In 500 Sodium Chloride 0.9% 500 ml 500 ml @ 167 mls/hr IVPB Q8H [facility] Rx#: [id number] Oral 590 1040 Other: Voiding Method Toilet Toilet Toilet # Voids 3 4 4 On examination patient is a young male, in no distress. He is alert and awake fully oriented. Speech and language functions are normal. On cranial nerve examination his pupils are round and reacting to light. Visual garcia are full on confrontation. Extraocular muscles are intact. Face is symmetric and tongue protrudes the midline. Palatal elevation normal. Muscle strength is normal in the arms and legs. Reflexes are 1+ and plantars downgoing. Sensory to touch is equal. No ataxia. [id number]-we-[id number] testing. Tone and bulk of muscles normal. Gait normal. Results - Laboratory Findings CBC and BMP: 09/19/18 07:52 09/20/18 08:42 Abnormal Lab Findings: Abnormal Labs 09/16/18 09/16/18 09/17/18 01:50 01:50 06:52 WBC 14.9 H 13.1 H Neutrophils # 10.3 H Lymphocytes # 5.1 H Chloride Glucose 109 H ALT 77 H CSF RBC CSF Tot Nucleated Cells CSF Total Protein 09/18/18 09/19/18 09/20/18 14:50 07:52 08:42 WBC Neutrophils # Lymphocytes # Chloride 108 H Glucose 130 H ALT 93 H CSF RBC 4145 H CSF Tot Nucleated Cells 70 H* CSF Total Protein 81 H Assessment and Plan Assessment: * 37-year-old male with acute onset of headache, rapidly worsening over several hours with associated neck pain, stiffness with fever. Lumbar puncture revealed elevated white cells with predominant mononuclear pleocytosis 83%, and 17% polynuclear pleocytosis on the cell count. However Gram stain showed predominant polynuclear pleocytosis. It is uncertain if this represents bacterial or viral meningitis. I think viral meningitis is still a possibility. 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 * Elevated intracranial pressure, probably due to meningitis. Doubt pseudotumor cerebri. * History of viral meningitis 10 years ago. * Tobacco user. Plan: Patient is currently being treated for possible bacterial meningitis with vancomycin, Rocephin and ampicillin. Infectious disease managing antibiotics. Regarding abnormal brain MRI, I would suggest outpatient neurosurgical evaluation and perhaps repeating MRI of the brain in 6-12 months for a follow-up to evaluate for any interval change. Patient's opening pressure was elevated, which could be related to meningitis. Hopefully the headaches will resolve after meningitis is completely treated. If the headaches persists after meningitis has resolved, then may need ophthalmology consultation to rule out papilledema and repeat lumbar puncture to check for opening pressure. We will follow clinically with you.
--- NOTE | 2018-09-20 22:53 | P.PN ---
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 The patient does relate to a history of about 10 years ago about of viral meningitis and because is felt so much like that he came to hospital quickly. When he was ill in the past to give him 3-4 days to see care and he was quite miserable for some time. The patient relates extremity feel a bit better this afternoon after hydration some pain control. The headache and neck stiffness are starting to improve. He has been febrile but is denying significant rigors. He is having other difficulties such as sinus discomfort. He similar discomforts in his chest no cough or sputum production. Denies abdominal pain. Denies nausea emesis constipation and diarrhea. He's had no urinary symptoms with burning or discomfort. 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 09/17/2018 the patient was feeling a bit better yesterday afternoon but again is feeling more poorly this afternoon. Headaches continue bit worse. Although he relates his thinking is not clear. I walk in the room and is dark however he is watching TV with agree difficulties. Family has brought his BiPAP unit and relates that he slept considerably better last night.does not believe that he is having chills or rigors low-grade fever only. 09/18/2018 status post lumbar puncture patient is feeling considerably better. The significant and severe headache is improved. Appetite is improved. Denies any acute neurological problems. No further fevers. Is currently supine post procedure to prevent postprocedural headache. 09/19/2018 patient is feeling considerably better today. Did have a bit of a postprocedural headache yesterday which is resolving today. He sitting upright to have his lunch without difficulty. She's having no nausea or emesis. Headaches are improved. Fever has improved. No new neurological complaint. 09/20/2018 having a better day today. Still some headache but responding well to pain medications. Denies fever or chills. Headache intensity has improved. No visual changes. No acute neurological complaints. No neck stiffness. Appetite has returned without nausea or emesis. Objective - Vital Signs Vital signs: Vital Signs Temp 98.1 F 09/20/18 20:55 Pulse 69 09/20/18 20:55 Resp 18 09/20/18 20:55 BP 133/78 09/20/18 20:55 Pulse Ox 96 09/20/18 20:55 Intake & Output 09/20/18 09/20/18 09/21/18 06:59 18:59 06:59 Intake Total 1290 3540 Balance 1290 3540 Intake: Intake, IV Titration 700 2500 Amount Ampicillin 2,000 mg In 100 200 Sodium Chloride 0.9% 100 ml @ 200 mls/hr IVPB Q4H [facility] Rx#:[id number] Lactated Ringers 1,000 ml 1800 @ 150 mls/hr IV .Q6H40M [facility] Rx#:[id number] Vancomycin 2,000 mg In 500 500 Sodium Chloride 0.9% 500 ml 500 ml @ 167 mls/hr IVPB Q8H [facility] Rx#: [id number] cefTRIAXone 2 gm In 100 Sodium Chloride 0.9% 50 ml @ 100 mls/hr IVPB Q12HR [facility] Rx#:[id number] Oral 590 1040 Other: Voiding Method Toilet Toilet # Voids 3 4 - Exam 37-year-old male in no acute distress but does complain of improving headache HEENT: Anicteric conjunctiva are pink and moist nasal mucosa grossly intact without significant lesions, there is no thrush. Neck: The neck is supple without significant lymphadenopathy or thyromegaly. Lungs: symmetrical air entry is noted, rare expiratory wheezes are scattered but no vince bronchial sounds with dullness or egophony Heart: Regular rate and rhythm with an audible S1-S2, no S3 no S4. There is no significant murmur click or rub, PMI was nondisplaced. Abdomen: obese,Positive bowel sounds soft and nontender without palpable masses or organomegaly. There was no guarding or rebound. Extremities: The upper extremities have excellent pulses they are symmetric, no significant petechiae or telangiectasia. No splinter hemorrhages were noted. The lower extremities are free from significant edema. The peripheral pulses were 2+ and symmetric.patient does have a large muscular build Neuro: Awake alert oriented to person place and time. There are no acute new gross focal sensory motor deficits. - Labs CBC & Chem 7: 09/19/18 07:52 09/20/18 08:42 Labs: Abnormal Lab Results - Last 24 Hours (Table) 09/20/18 Range/Units 08:42 Glucose 130 H (74-99) mg/dL Microbiology - Last 24 Hours (Table) 09/16/18 01:50 Blood Culture - Preliminary Blood No Growth after 96 hours Laboratory Results WBC 10.4 k/uL (3.8-10.6) 09/19/18 07:52 RBC 4.89 m/uL (4.30-5.90) 09/19/18 07:52 Hgb 15.1 gm/dL (13.0-17.5) 09/19/18 07:52 Hct 44.3 % (39.0-53.0) 09/19/18 07:52 MCV 90.5 fL (80.0-100.0) 09/19/18 07:52 MCH 30.8 pg (25.0-35.0) 09/19/18 07:52 MCHC 34.1 g/dL (31.0-37.0) 09/19/18 07:52 RDW 12.9 % (11.5-15.5) 09/19/18 07:52 Plt Count 308 k/uL (150-450) 09/19/18 07:52 Neutrophils % 60 % 09/19/18 07:52 Lymphocytes % 28 % 09/19/18 07:52 Monocytes % 6 % 09/19/18 07:52 Eosinophils % 3 % 09/19/18 07:52 Basophils % 1 % 09/19/18 07:52 Neutrophils # 6.3 k/uL (1.3-7.7) 09/19/18 07:52 Lymphocytes # 2.9 k/uL (1.0-4.8) 09/19/18 07:52 Monocytes # 0.6 k/uL (0-1.0) 09/19/18 07:52 Eosinophils # 0.3 k/uL (0-0.7) 09/19/18 07:52 Basophils # 0.1 k/uL (0-0.2) 09/19/18 07:52 PT 9.5 sec (9.0-12.0) 09/16/18 01:50 INR 0.9 (<1.2) 09/16/18 01:50 APTT 23.6 sec (22.0-30.0) 09/16/18 01:50 Sodium 139 mmol/L (137-145) 09/20/18 08:42 Potassium 3.8 mmol/L (3.5-5.1) 09/20/18 08:42 Chloride 106 mmol/L (98-107) 09/20/18 08:42 Carbon Dioxide 24 mmol/L (22-30) 09/20/18 08:42 Anion Gap 9 mmol/L 09/20/18 08:42 BUN 9 mg/dL (9-20) 09/20/18 08:42 Creatinine 0.77 mg/dL (0.66-1.25) 09/20/18 08:42 Est GFR (CKD-EPI)AfAm >90 (>60 ml/min/1.73 sqM) 09/20/18 08:42 Est GFR (CKD-EPI)NonAf >90 (>60 ml/min/1.73 sqM) 09/20/18 08:42 Glucose 130 mg/dL (74-99) H 09/20/18 08:42 Plasma Lactic Acid Rob 1.3 mmol/L (0.7-2.0) 09/16/18 01:50 Calcium 9.3 mg/dL (8.4-10.2) 09/20/18 08:42 Total Bilirubin 0.6 mg/dL (0.2-1.3) 09/19/18 07:52 AST 40 U/L (17-59) 09/19/18 07:52 ALT 93 U/L (21-72) H 09/19/18 07:52 Alkaline Phosphatase 52 U/L (38-126) 09/19/18 07:52 Total Protein 6.4 g/dL (6.3-8.2) 09/19/18 07:52 Albumin 3.9 g/dL (3.5-5.0) 09/19/18 07:52 Procalcitonin 0.03 ng/mL (0.02-0.09) 09/16/18 16:00 Urine Color Yellow 09/16/18 01:50 Urine Appearance Clear (Clear) 09/16/18 01:50 Urine pH 7.0 (5.0-8.0) 09/16/18 01:50 Ur Specific [place] 1.022 (1.001-1.035) 09/16/18 01:50 Urine Protein Negative (Negative) 09/16/18 01:50 Urine Glucose (UA) Negative (Negative) 09/16/18 01:50 Urine Ketones Negative (Negative) 09/16/18 01:50 Urine Blood Negative (Negative) 09/16/18 01:50 Urine Nitrite Negative (Negative) 09/16/18 01:50 Urine Bilirubin Negative (Negative) 09/16/18 01:50 Urine Urobilinogen <2.0 mg/dL (<2.0) 09/16/18 01:50 Ur Leukocyte Esterase Negative (Negative) 09/16/18 01:50 CSF Tube Number 4 09/18/18 14:50 CSF Volume 6 09/18/18 14:50 CSF Appearance Blood Tinged 09/18/18 14:50 CSF Color [place] 09/18/18 14:50 CSF RBC 4145 u/L (0-10) H 09/18/18 14:50 CSF Tot Nucleated Cells 70 u/L (0-5) H* 09/18/18 14:50 CSF Mononuclear WBCs % 83 % 09/18/18 14:50 CSF Polynuclear WBCs % 17 % 09/18/18 14:50 CSF Crenated Cells 0 % 09/18/18 14:50 CSF Fresh RBCs 100 % 09/18/18 14:50 CSF Glucose 50 mg/dL (40-70) 09/18/18 14:50 CSF Total Protein 81 mg/dL (12-60) H 09/18/18 14:50 Vancomycin Trough 15.2 ug/mL 09/18/18 22:36 HSV I DNA PCR Not detected (Not detected) 09/18/18 12:00 HSV II DNA PCR Not detected (Not detected) 09/18/18 12:00 HSV (PCR) Source 09/18/18 12:00 Influenza Type A RNA Not Detected (Not Detectd) 09/16/18 00:59 Influenza Type B (PCR) Not Detected (Not Detectd) 09/16/18 00:59 Microbiology 09/18/18 14:50 Cerebral Spinal Fluid CSF Gram Stain - Preliminary 09/18/18 14:50 Cerebral Spinal Fluid CSF Culture - Preliminary 09/16/18 01:50 Blood Blood Culture - Preliminary No Growth after 96 hours 09/18/18 14:05 Cerebral Spinal Fluid Anaerobic Culture - Preliminary 09/16/18 01:50 Urine,Clean Catch Urine Culture - Final Assessment and Plan (1) Meningitis Current Visit: Yes Status: Acute Code(s): G03.9 - MENINGITIS, UNSPECIFIED SNOMED Code(s): 1793129 (2) Fever Narrative/Plan: 37-year-old male presents to hospital with relatively sudden onset of headache with some significant discomfort within his neck and neck stiffness and that associated with fever. Because of his history of 10 years ago of viral meningitis he was concerned about recurrence because presented to emergency room typically quickly after the onset of his symptoms. In emergency center for a temperature lumbar puncture were performed. Given his large muscular size they were not successful. Interventional radiology has been requested for guided lumbar puncture. Antibiotic therapy has been initiated and is appropriate. However antiviral therapy will be added pending further data at time of the lumbar puncture. CT and MRI failed reveal evidence of hydrocephalus and consequently competition from a choroid plexus papilloma seems to be quite unlikely at this point in time. Outpatient follow-up will be scheduled regarding this change. And a lumbar puncture opening pressure should be obtained to further evaluate the possibility of early hydrocephalus. We will request the patient's family to bring in his BiPAP device to help with sleep apnea.blood cultures are pending. 09/17/2018 patient was feeling a bit better now again is having some worsening of the headache. The patient's interventional radiology lumbar puncture is still being planned. Ensuring an opening pressure is obtained has been requested given the likelihood of the choroid plexus papilloma. Routine studies of course will also be helpful. Given that he has had one prior bout PCR for HSV 1HSV2 were also requested. continue current antibiotic and antiviral therapy pending a lumbar puncture. Plan nicotine patch in that his worsening headache could be related somewhat to his nicotine withdrawal. Toradol will also be added to try to improve his discomforts. 09/18/2018 lumbar puncture has been performed and has allowed some relief of his headache. Studies are pending. Opening pressure was greater than 55. 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 However difficult to explain the fever at admission. Bacterial viral and fungal cultures are pending at this time. Continue current antibiotic and antiviral therapy. 09/19/2018 the patient is feeling somewhat better today. His headache did i mprove after the lumbar puncture, did increase a bit last evening but is better today. He is able to sit upright and have his lunch. He denies other acute complaints at this time. No further fevers. Workup remains in progress. HSV 1 and 2 was negative by PCR and acyclovir was discontinued. Antibiotic is otherwise are continuing at this time while the CSF workup is in progress. Given the markedly elevated CSF pressure neurology consult has been requested given the choroid plexus papilloma and next steps might be indicated. September patient is feeling better with less headache overall feeling somewhat better. Denies new acute symptoms. Cultures are in process. As noted HSV-1 and HSV-2 were negative and acyclovir discontinued. Continue current antibiotic therapy overall course to be determined in the next short period of time Current Visit: Yes Status: Acute Code(s): R50.9 - FEVER, UNSPECIFIED SNOMED Code(s): 138453955 (3) Headache Current Visit: Yes Status: Acute Code(s): R51 - HEADACHE SNOMED Code(s): 94598324 (4) Obstructive sleep apnea Current Visit: Yes Status: Acute Code(s): G47.33 - OBSTRUCTIVE SLEEP APNEA (ADULT) (PEDIATRIC) SNOMED Code(s): 77315726
[2018-09-21] MEDS: AMPICILLIN 2,000 MG in SODIUM CHLORIDE 0.9% 100 ML IVPB SCH ×4 (02:22→15:06)
[2018-09-21] MEDS: MORPHINE SULFATE 4 MG/ML SYRINGE IV PRN ×2 (02:22→10:19)
[2018-09-21] MEDS: ACETAMINOPHEN TAB 325 MG TAB PO PRN ×2 (05:19→12:16)
[2018-09-21] MEDS: KETOROLAC 30 MG/ML 1 ML VIAL IVP SCH ×2 (05:20→12:14)
--- NOTE | 2018-09-21 05:23 | PN ---
PROGRESS NOTE DATE OF SERVICE: 09/20/2018 PRESENTING COMPLAINT: Headaches. INTERVAL HISTORY: Patient admitted with acute meningitis. Also had post spinal tap headache, which is actually improving. Tolerating a diet. Overall feeling better. Headache is much improved. Neurology was consulted by Dr. Manning to ascertain the high increased opening pressure. REVIEW OF SYSTEMS: Done for constitutional, cardiovascular, GI, pulmonary; relevant findings above. CURRENT MEDICATIONS: Current medications are reviewed that include IV ceftriaxone, ampicillin, vancomycin. PHYSICAL EXAMINATION: On examination, afebrile, pulse 68, respiration 16, blood pressure 122/67, pulse ox 97% on room air. GENERAL APPEARANCE: Sitting at the edge of bed, more comfortable. EYES: Pupils equal. Conjunctivae normal. NECK: JVD not raised. Mass not palpable. RESPIRATORY: Effort normal. LUNGS: Are clear. CARDIOVASCULAR: First and second sounds normal. No edema. ABDOMEN: Soft, nontender. Liver and spleen not palpable. PSYCHIATRY: Alert and oriented x3. Mood and affect normal. NEUROLOGICAL: No neck stiffness. INVESTIGATIONS: Potassium 3.8. BUN creatinine normal. ASSESSMENT: 1. Acute meningitis, most likely bacterial with good clinical response. 2. Increased opening pressure on lumbar puncture, likely from meningitis. 3. Post spinal tap headache, spinal headache, improved with IV fluids. 4. Obesity, body mass index 36.9. 5. 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 PLAN: Current antibiotics per Dr. Manning. Clinically patient is much improved. We will DC the IV fluids later today. Care was discussed with the patient. Dr. Manning will coordinate his antibiotics. Neurology consultation was done. MMODL / IJN: [id number] /
[2018-09-21] MEDS: VANCOMYCIN 2,000 MG in SODIUM CHLORIDE 0.9% 500 ML 500 ML IVPB SCH ×2 (06:05→15:03)
[2018-09-21] MEDS: ENOXAPARIN 40 MG/0.4 ML SYRINGE SQ SCH (08:19)
[2018-09-21] MEDS: NICOTINE 14MG/24HR PATCH TRANSDERM SCH (08:22)
[2018-09-21 09:33] LABS: Basophils # (A) 0.1 k/uL (0-0.2); Basophils % (A) 1 %; Eosinophils # (A) 0.5 k/uL (0-0.7); Eosinophils % (A) 5 %; HCT 43.7 % (39.0-53.0); HGB 14.8 gm/dL (13.0-17.5); Lymphocytes # (A) 3.1 k/uL (1.0-4.8); Lymphocytes % (A) 26 %; MCH 30.9 pg (25.0-35.0); MCHC 33.8 g/dL (31.0-37.0); MCV 91.5 fL (80.0-100.0); Mean Platelet Volume 6.5; Monocytes # (A) 0.7 k/uL (0-1.0); Monocytes % (A) 6 %; Neutrophils # (A) 7.1 k/uL (1.3-7.7); Neutrophils % (A) 61 %; Platelet Count 293 k/uL (150-450); RBC 4.78 m/uL (4.30-5.90); RDW 13.3 % (11.5-15.5); WBC 11.7 k/uL (3.8-10.6)
[2018-09-21 09:35] LABS: Anion Gap 8 mmol/L; Blood Urea Nitrogen 11 mg/dL (9-20); Calcium 9.2 mg/dL (8.4-10.2); Carbon Dioxide 24 mmol/L (22-30); Chloride 107 mmol/L (98-107); Glucose 113 mg/dL (74-99); Sodium 139 mmol/L (137-145)
--- NOTE | 2018-09-21 11:27 | P.PN ---
Subjective Progress Note Date: 09/21/18 Patient states his headaches have improved. Patient denies any positional component to the headache. At present he rates it at 2/10 involving the left frontal region and nape of the neck. Patient states that for a couple weeks prior to the onset of meningitis, he was having episodes in which she would lose hearing on the right side lasting for 10 minutes. Not every day, only off and on. He had it for long time, but was more frequent in the last 2 weeks. He had history of sinus surgery 4-5 years ago and follows up with ENT specialist. . Objective - Vital Signs Vital signs: Vital Signs Temp 98.6 F 09/21/18 05:00 Pulse 71 09/21/18 05:00 Resp 18 09/21/18 05:00 BP 141/81 09/21/18 05:00 Pulse Ox 97 09/21/18 05:00 Intake & Output 09/20/18 09/21/18 09/21/18 18:59 06:59 18:59 Intake Total 3540 1500 Balance 3540 1500 Intake: Intake, IV Titration 2500 1500 Amount Ampicillin 2,000 mg In 200 300 Sodium Chloride 0.9% 100 ml @ 200 mls/hr IVPB Q4H [facility] Rx#:[id number] Lactated Ringers 1,000 ml 1800 600 @ 150 mls/hr IV .Q6H40M [facility] Rx#:[id number] Vancomycin 2,000 mg In 500 500 Sodium Chloride 0.9% 500 ml 500 ml @ 167 mls/hr IVPB Q8H [facility] Rx#: [id number] cefTRIAXone 2 gm In 100 Sodium Chloride 0.9% 50 ml @ 100 mls/hr IVPB Q12HR [facility] Rx#:[id number] Oral 1040 Other: Voiding Method Toilet Toilet Toilet # Voids 4 2 - Exam On examination patient's mental status, speech and language functions are normal. Cranial nerves are normal. Muscle strength normal. Gait normal. - Labs CBC & Chem 7: 09/21/18 08:42 09/21/18 08:42 Labs: Abnormal Lab Results - Last 24 Hours (Table) 09/21/18 09/21/18 Range/Units 08:42 08:42 WBC 11.7 H (3.8-10.6) k/uL Glucose 113 H (74-99) mg/dL Microbiology - Last 24 Hours (Table) 09/16/18 01:50 Blood Culture - Preliminary Blood No Growth after 120 hours 09/18/18 14:50 CSF Gram Stain - Preliminary Cerebral Spinal Fluid CSF Culture - Preliminary Assessment and Plan Assessment: * 37-year-old male with acute onset of headache, rapidly worsening over several hours with associated neck pain, stiffness with fever. Lumbar puncture revealed elevated white cells with predominant mononuclear pleocytosis 83%, and 17% polynuclear pleocytosis on the cell count. However Gram stain showed predominant polynuclear pleocytosis. It is uncertain if this represents bacterial or viral meningitis. 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 * Elevated intracranial pressure, probably due to meningitis. Doubt pseudotumor cerebri. * History of viral meningitis 10 years ago. * Tobacco user. Plan: Patient is currently being treated for possible bacterial meningitis with vancomycin, Rocephin and ampicillin. Infectious disease managing antibiotics. Regarding abnormal brain MRI, I would suggest outpatient neurosurgical evaluation and perhaps repeating MRI of the brain in 6-12 months for a follow-up to evaluate for any interval change. Patient's opening pressure was elevated, which could be related to meningitis. Hopefully the headaches will resolve after meningitis is completely treated. If the headaches persists after meningitis has resolved, then may need ophthalmology consultation to rule out papilledema and repeat lumbar puncture to check for opening pressure. We will follow clinically with you.
[2018-09-21 11:52] VITALS: BP 134/81; PULSE 78; RESP 17; TEMP 98.1
--- NOTE | 2018-09-21 22:15 | P.PN ---
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 The patient does relate to a history of about 10 years ago about of viral meningitis and because is felt so much like that he came to hospital quickly. When he was ill in the past to give him 3-4 days to see care and he was quite miserable for some time. The patient relates extremity feel a bit better this afternoon after hydration some pain control. The headache and neck stiffness are starting to improve. He has been febrile but is denying significant rigors. He is having other difficulties such as sinus discomfort. He similar discomforts in his chest no cough or sputum production. Denies abdominal pain. Denies nausea emesis constipation and diarrhea. He's had no urinary symptoms with burning or discomfort. 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 09/17/2018 the patient was feeling a bit better yesterday afternoon but again is feeling more poorly this afternoon. Headaches continue bit worse. Although he relates his thinking is not clear. I walk in the room and is dark however he is watching TV with agree difficulties. Family has brought his BiPAP unit and relates that he slept considerably better last night.does not believe that he is having chills or rigors low-grade fever only. 09/18/2018 status post lumbar puncture patient is feeling considerably better. The significant and severe headache is improved. Appetite is improved. Denies any acute neurological problems. No further fevers. Is currently supine post procedure to prevent postprocedural headache. 09/19/2018 patient is feeling considerably better today. Did have a bit of a postprocedural headache yesterday which is resolving today. He sitting upright to have his lunch without difficulty. She's having no nausea or emesis. Headaches are improved. Fever has improved. No new neurological complaint. 09/20/2018 having a better day today. Still some headache but responding well to pain medications. Denies fever or chills. Headache intensity has improved. No visual changes. No acute neurological complaints. No neck stiffness. Appetite has returned without nausea or emesis. 09/21/2018 patient has improved today does have some headache, but no nausea or emesis. Feels much better than admit. Objective - Vital Signs Vital signs: Vital Signs Temp 98.1 F 09/21/18 11:22 Pulse 78 09/21/18 11:22 Resp 17 09/21/18 11:22 BP 134/81 09/21/18 11:22 Pulse Ox 95 09/21/18 11:22 Intake & Output 09/21/18 09/21/18 09/22/18 06:59 18:59 06:59 Intake Total 1500 1200 Balance 1500 1200 Intake: Intake, IV Titration 1500 1200 Amount Ampicillin 2,000 mg In 300 Sodium Chloride 0.9% 100 ml @ 200 mls/hr IVPB Q4H [facility] Rx#:[id number] Lactated Ringers 1,000 ml 600 950 @ 150 mls/hr IV .Q6H40M [facility] Rx#:[id number] Vancomycin 2,000 mg In 500 250 Sodium Chloride 0.9% 500 ml 500 ml @ 167 mls/hr IVPB Q8H [facility] Rx#: [id number] cefTRIAXone 2 gm In 100 Sodium Chloride 0.9% 50 ml @ 100 mls/hr IVPB Q12HR [facility] Rx#:[id number] Other: Voiding Method Toilet Toilet # Voids 2 - Exam 37-year-old male in no acute distress but does complain of improving headache HEENT: Anicteric conjunctiva are pink and moist nasal mucosa grossly intact without significant lesions, there is no thrush. Neck: The neck is supple without significant lymphadenopathy or thyromegaly. Lungs: symmetrical air entry is noted, rare expiratory wheezes are scattered but no vince bronchial sounds with dullness or egophony Heart: Regular rate and rhythm with an audible S1-S2, no S3 no S4. There is no significant murmur click or rub, PMI was nondisplaced. Abdomen: obese,Positive bowel sounds soft and nontender without palpable masses or organomegaly. There was no guarding or rebound. Extremities: The upper extremities have excellent pulses they are symmetric, no significant petechiae or telangiectasia. No splinter hemorrhages were noted. The lower extremities are free from significant edema. The peripheral pulses were 2+ and symmetric.patient does have a large muscular build Neuro: Awake alert oriented to person place and time. There are no acute new gross focal sensory motor deficits. - Labs CBC & Chem 7: 09/21/18 08:42 09/21/18 08:42 Labs: Abnormal Lab Results - Last 24 Hours (Table) 09/21/18 09/21/18 Range/Units 08:42 08:42 WBC 11.7 H (3.8-10.6) k/uL Glucose 113 H (74-99) mg/dL Microbiology - Last 24 Hours (Table) 09/18/18 14:50 CSF Gram Stain - Preliminary Cerebral Spinal Fluid CSF Culture - Preliminary 09/16/18 01:50 Blood Culture - Preliminary Blood No Growth after 120 hours Laboratory Results WBC 11.7 k/uL (3.8-10.6) H 09/21/18 08:42 RBC 4.78 m/uL (4.30-5.90) 09/21/18 08:42 Hgb 14.8 gm/dL (13.0-17.5) 09/21/18 08:42 Hct 43.7 % (39.0-53.0) 09/21/18 08:42 MCV 91.5 fL (80.0-100.0) 09/21/18 08:42 MCH 30.9 pg (25.0-35.0) 09/21/18 08:42 MCHC 33.8 g/dL (31.0-37.0) 09/21/18 08:42 RDW 13.3 % (11.5-15.5) 09/21/18 08:42 Plt Count 293 k/uL (150-450) 09/21/18 08:42 Neutrophils % 61 % 09/21/18 08:42 Lymphocytes % 26 % 09/21/18 08:42 Monocytes % 6 % 09/21/18 08:42 Eosinophils % 5 % 09/21/18 08:42 Basophils % 1 % 09/21/18 08:42 Neutrophils # 7.1 k/uL (1.3-7.7) 09/21/18 08:42 Lymphocytes # 3.1 k/uL (1.0-4.8) 09/21/18 08:42 Monocytes # 0.7 k/uL (0-1.0) 09/21/18 08:42 Eosinophils # 0.5 k/uL (0-0.7) 09/21/18 08:42 Basophils # 0.1 k/uL (0-0.2) 09/21/18 08:42 PT 9.5 sec (9.0-12.0) 09/16/18 01:50 INR 0.9 (<1.2) 09/16/18 01:50 APTT 23.6 sec (22.0-30.0) 09/16/18 01:50 Sodium 139 mmol/L (137-145) 09/21/18 08:42 Potassium 4.0 mmol/L (3.5-5.1) 09/21/18 08:42 Chloride 107 mmol/L (98-107) 09/21/18 08:42 Carbon Dioxide 24 mmol/L (22-30) 09/21/18 08:42 Anion Gap 8 mmol/L 09/21/18 08:42 BUN 11 mg/dL (9-20) 09/21/18 08:42 Creatinine 0.78 mg/dL (0.66-1.25) 09/21/18 08:42 Est GFR (CKD-EPI)AfAm >90 (>60 ml/min/1.73 sqM) 09/21/18 08:42 Est GFR (CKD-EPI)NonAf >90 (>60 ml/min/1.73 sqM) 09/21/18 08:42 Glucose 113 mg/dL (74-99) H 09/21/18 08:42 Plasma Lactic Acid Rob 1.3 mmol/L (0.7-2.0) 09/16/18 01:50 Calcium 9.2 mg/dL (8.4-10.2) 09/21/18 08:42 Total Bilirubin 0.6 mg/dL (0.2-1.3) 09/19/18 07:52 AST 40 U/L (17-59) 09/19/18 07:52 ALT 93 U/L (21-72) H 09/19/18 07:52 Alkaline Phosphatase 52 U/L (38-126) 09/19/18 07:52 Total Protein 6.4 g/dL (6.3-8.2) 09/19/18 07:52 Albumin 3.9 g/dL (3.5-5.0) 09/19/18 07:52 Procalcitonin 0.03 ng/mL (0.02-0.09) 09/16/18 16:00 Urine Color Yellow 09/16/18 01:50 Urine Appearance Clear (Clear) 09/16/18 01:50 Urine pH 7.0 (5.0-8.0) 09/16/18 01:50 Ur Specific [place] 1.022 (1.001-1.035) 09/16/18 01:50 Urine Protein Negative (Negative) 09/16/18 01:50 Urine Glucose (UA) Negative (Negative) 09/16/18 01:50 Urine Ketones Negative (Negative) 09/16/18 01:50 Urine Blood Negative (Negative) 09/16/18 01:50 Urine Nitrite Negative (Negative) 09/16/18 01:50 Urine Bilirubin Negative (Negative) 09/16/18 01:50 Urine Urobilinogen <2.0 mg/dL (<2.0) 09/16/18 01:50 Ur Leukocyte Esterase Negative (Negative) 09/16/18 01:50 CSF Tube Number 4 09/18/18 14:50 CSF Volume 6 09/18/18 14:50 CSF Appearance Blood Tinged 09/18/18 14:50 CSF Color [place] 09/18/18 14:50 CSF RBC 4145 u/L (0-10) H 09/18/18 14:50 CSF Tot Nucleated Cells 70 u/L (0-5) H* 09/18/18 14:50 CSF Mononuclear WBCs % 83 % 09/18/18 14:50 CSF Polynuclear WBCs % 17 % 09/18/18 14:50 CSF Crenated Cells 0 % 09/18/18 14:50 CSF Fresh RBCs 100 % 09/18/18 14:50 CSF Glucose 50 mg/dL (40-70) 09/18/18 14:50 CSF Total Protein 81 mg/dL (12-60) H 09/18/18 14:50 Vancomycin Trough 15.2 ug/mL 09/18/18 22:36 HSV I DNA PCR Not detected (Not detected) 09/18/18 12:00 HSV II DNA PCR Not detected (Not detected) 09/18/18 12:00 HSV (PCR) Source 09/18/18 12:00 Influenza Type A RNA Not Detected (Not Detectd) 09/16/18 00:59 Influenza Type B (PCR) Not Detected (Not Detectd) 09/16/18 00:59 Microbiology 09/18/18 14:50 Cerebral Spinal Fluid CSF Gram Stain - Preliminary 09/18/18 14:50 Cerebral Spinal Fluid CSF Culture - Preliminary 09/16/18 01:50 Blood Blood Culture - Preliminary No Growth after 120 hours 09/18/18 14:05 Cerebral Spinal Fluid Anaerobic Culture - Preliminary 09/16/18 01:50 Urine,Clean Catch Urine Culture - Final Assessment and Plan (1) Meningitis Status: Acute Code(s): G03.9 - MENINGITIS, UNSPECIFIED SNOMED Code(s): 2028124 (2) Fever Narrative/Plan: 37-year-old male presents to hospital with relatively sudden onset of headache with some significant discomfort within his neck and neck stiffness and that associated with fever. Because of his history of 10 years ago of viral meningitis he was concerned about recurrence because presented to emergency room typically quickly after the onset of his symptoms. In emergency center for a temperature lumbar puncture were performed. Given his large muscular size they were not successful. Interventional radiology has been requested for guided lumbar puncture. Antibiotic therapy has been initiated and is appropriate. However antiviral therapy will be added pending further data at time of the lumbar puncture. CT and MRI failed reveal evidence of hydrocephalus and consequently competition from a choroid plexus papilloma seems to be quite unlikely at this point in time. Outpatient follow-up will be scheduled regarding this change. And a lumbar puncture opening pressure should be obtained to further evaluate the possibility of early hydrocephalus. We will request the patient's family to bring in his BiPAP device to help with sleep apnea.blood cultures are pending. 09/17/2018 patient was feeling a bit better now again is having some worsening of the headache. The patient's interventional radiology lumbar puncture is still being planned. Ensuring an opening pressure is obtained has been requested given the likelihood of the choroid plexus papilloma. Routine studies of course will also be helpful. Given that he has had one prior bout PCR for HSV 1HSV2 were also requested. continue current antibiotic and antiviral therapy pending a lumbar puncture. Plan nicotine patch in that his worsening headache could be related somewhat to his nicotine withdrawal. Toradol will also be added to try to improve his discomforts. 09/18/2018 lumbar puncture has been performed and has allowed some relief of his headache. Studies are pending. Opening pressure was greater than 55. 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 However difficult to explain the fever at admission. Bacterial viral and fungal cultures are pending at this time. Continue current antibiotic and antiviral therapy. 09/19/2018 the patient is feeling somewhat better today. His headache did improve after the lumbar puncture, did increase a bit last evening but is better today. He is able to sit upright and have his lunch. He denies other acute complaints at this time. No further fevers. Workup remains in progress. HSV 1 and 2 was negative by PCR and acyclovir was discontinued. Antibiotic is otherwise are continuing at this time while the CSF workup is in progress. Given the markedly elevated CSF pressure neurology consult has been requested given the choroid plexus papilloma and next steps might be indicated. September patient is feeling better with less headache overall feeling somewhat better. Denies new acute symptoms. Cultures are in process. As noted HSV-1 and HSV-2 were negative and acyclovir discontinued. Continue current antibiotic therapy overall course to be determined in the next short period of time 09/21/2018 was seen by Neuro and outpatient follow up to be arranged. The elevated OP likely due to the meningitis. Pathogen not found but likely Strep since most common cause and patient not immunocompromised. Arrange for 2 weeks of Rocephin at home to complete the course. Midline placed and patient to discharge if feels better. Oral antiinflammatory requested. blood work and office follow up ordered. Status: Acute Code(s): R50.9 - FEVER, UNSPECIFIED SNOMED Code(s): 673010895 (3) Headache Status: Acute Code(s): R51 - HEADACHE SNOMED Code(s): 84766457 (4) Obstructive sleep apnea Status: Acute Code(s): G47.33 - OBSTRUCTIVE SLEEP APNEA (ADULT) (PEDIATRIC) SNOMED Code(s): 61488365
[2018-09-22] MEDS ORDERED: VANCOMYCIN TROUGH DUE 1 EACH MISC MISCELLANE ONE (06:00)
--- NOTE | 2018-09-22 09:17 | DS ---
DISCHARGE SUMMARY DATE OF ADMISSION: 09/16/2018 DATE OF DISCHARGE: 09/21/2018 FINAL DIAGNOSES: 1. Acute bacterial meningitis. 2. Post spinal tap headache. 3. Obesity, body mass index 36.9/. 4. Venous complex of the brain to be followed as an outpatient. CONSULTATION: Dr. Manning from Infectious Disease; Dr. Lainez from Neurology. HOSPITAL COURSE: This patient presented with acute meningitis. Viral studies were negative. Cultures came back negative. The patient has a lesion in the occipital horn of the right ventricle, which could be a venous abnormality. The patient to follow up through his family doctor for a neurosurgical workup, but this is not felt to be of any acute consequence to the presentation. The patient doing much better up and about. Tolerating a diet. Afebrile. On examination, temperature 98.6, pulse 71, respiration 18, blood pressure 141/81, pulse ox 97% on room air. LUNGS: Are clear. CARDIOVASCULAR: First and second sounds normal. DISCHARGE MEDICATIONS: 1. Tylenol 650 mg q.6h p.r.n. 2. Nicotine patch 14. 3. IV ceftriaxone 2 grams q.12 for 10 more days. Follow up with Dr. Duvall on 09/26/2018. Patient to get a neurosurgical opinion through his PCP. CBC, BMP in 3 to 5 days. MMODL / IJN: [id number] /
== END 2018-09-21 16:40 | disposition home or self-care (01) | DRG 95 ==
LOC: EC 00:31 → 3NMEDONC 05:07
PROVIDERS: ADMIT Hospitalist; ATTEND Hospitalist
PROC: 009U3ZX Drainage of Spinal Canal, Percutaneous Approach, Diagnostic (ICD-10-PCS; principal; 2018-09-18)
DX: G00.9 Bacterial meningitis, unspecified (principal); F17.213 Nicotine dependence, cigarettes, with withdrawal; G97.1 Other reaction to spinal and lumbar puncture; E66.9 Obesity, unspecified; Z68.36 Body mass index [BMI] 36.0-36.9, adult; D33.0 Benign neoplasm of brain, supratentorial; G47.33 Obstructive sleep apnea (adult) (pediatric); I87.8 Other specified disorders of veins; Z86.61 Personal history of infections of the central nervous system; Z90.49 Acquired absence of other specified parts of digestive tract; Y84.4 Aspiration of fluid as the cause of abnormal reaction of the patient, or of later complication, without mention of misadventure at the time of the procedure; Y92.239 Unspecified place in hospital as the place of occurrence of the external cause
CPT/HCPCS: 36410; 36415; 62270; 70450; 70553; 71046; 76937; 80048; 80053; 80202; 81003; 82945; 83605; 84145; 84157; 85025; 85610; 85730; 87040; 87070; 87075; 87086; 87205; 87327; 87502; 87529; 88108; 89050; 94760; 96361; 96365; 96366; 96368; 96375; 96376; 99285

== ENCOUNTER 2019-01-18 10:10 | Observation (INO) | payer OTHER ==
[2019-01-18] MEDS ORDERED: SODIUM CHLORIDE 0.9% 1,000 ML IV ONE (10:57)
[2019-01-18 11:22] LABS: Basophils # (A) 0.1 k/uL (0-0.2); Basophils % (A) 1 %; Eosinophils # (A) 0.4 k/uL (0-0.7); Eosinophils % (A) 3 %; HCT 44.2 % (39.0-53.0); HGB 15.3 gm/dL (13.0-17.5); Lymphocytes # (A) 2.7 k/uL (1.0-4.8); Lymphocytes % (A) 21 %; MCH 31.7 pg (25.0-35.0); MCHC 34.7 g/dL (31.0-37.0); MCV 91.2 fL (80.0-100.0); Mean Platelet Volume 6.9; Monocytes # (A) 0.8 k/uL (0-1.0); Monocytes % (A) 7 %; Neutrophils # (A) 8.5 k/uL (1.3-7.7); Neutrophils % (A) 68 %; Platelet Count 285 k/uL (150-450); RBC 4.84 m/uL (4.30-5.90); RDW 14.8 % (11.5-15.5); WBC 12.6 k/uL (3.8-10.6)
--- NOTE | 2019-01-18 11:28 | ED ---
Skin/Abscess/FB HPI - General Chief complaint: Skin/Abscess/Foreign Body Stated complaint: Lump on buttocks Time Seen by Provider: 01/18/19 10:38 Source: patient, RN notes reviewed Mode of arrival: ambulatory Limitations: no limitations - History of Present Illness Initial comments: 38-year-old male presents emergency from chief complaint of abscess to his right lower buttock, perineal region. Patient states she's had some recurrent abscesses with states this is a worse at the [facility] most painful. Patient reports subjective fevers and chills. Patient states that he just does not feel well. He's had no surgical intervention done his prior abscesses. Patient denies being diabetic denies any constipation or diarrhea denies any dysuria. - Related Data Home Medications Medication Instructions Recorded Confirmed No Known Home Medications 01/18/19 01/18/19 Allergies Allergy/AdvReac Type Severity Reaction Status Date / Time No Known Allergies Allergy Verified 01/18/19 10:48 Review of Systems ROS Statement: Those systems with pertinent positive or pertinent negative responses have been documented in the HPI. ROS Other: All systems not noted in ROS Statement are negative. Past Medical History Past Medical History: No Reported History Additional Past Medical History / Comment(s): Viral meningitis 10 years ago, bacterial meningitis 2019 History of Any Multi-Drug Resistant Organisms: None Reported Past Surgical History: Appendectomy, Ear Surgery Past Anesthesia/Blood Transfusion Reactions: No Reported Reaction Past Psychological History: No Psychological Hx Reported Smoking Status: Current every day smoker Past Alcohol Use History: Occasional Past Drug Use History: None Reported General Exam Limitations: no limitations General appearance: alert, in no apparent distress Head exam: Present: atraumatic, normocephalic, normal inspection Eye exam: Present: normal appearance, PERRL, EOMI. Absent: scleral icterus, conjunctival injection, periorbital swelling ENT exam: Present: normal exam, normal oropharynx, mucous membranes moist Neck exam: Present: normal inspection, full ROM. Absent: tenderness, meningismus, lymphadenopathy Respiratory exam: Present: normal lung sounds bilaterally. Absent: respiratory distress, wheezes, rales, rhonchi, stridor Cardiovascular Exam: Present: regular rate, normal rhythm, normal heart sounds. Absent: systolic murmur, diastolic murmur, rubs, gallop, clicks GI/Abdominal exam: Present: soft, normal bowel sounds. Absent: distended, tenderness, guarding, rebound, rigid Rectal exam: Present: other (Right lower buttocks, perineum region there is induration, erythema and severe tenderness with palpation) Neurological exam: Present: alert Skin exam: Present: warm, dry, intact, normal color. Absent: rash Course Vital Signs 01/18/19 10:27 Temperature 98.7 F Pulse Rate 94 Respiratory 18 Rate Blood Pressure 133/89 O2 Sat by Pulse 96 Oximetry Medical Decision Making - Medical Decision Making 38-year-old male presented for right perineal abscess. Patient is exquisitely tender in this area there is a [address] Case discussed with Dr. De Souza recommends patient be nothing by mouth, antibiotics was started and patient was taken to the or - Lab Data Result diagrams: 01/18/19 11:08 01/18/19 11:08 Lab Results 01/18/19 01/18/19 01/18/19 Range/Units 11:08 11:08 11:08 WBC 12.6 H (3.8-10.6) k/uL RBC 4.84 (4.30-5.90) m/uL Hgb 15.3 (13.0-17.5) gm/dL Hct 44.2 (39.0-53.0) % MCV 91.2 (80.0-100.0) fL MCH 31.7 (25.0-35.0) pg MCHC 34.7 (31.0-37.0) g/dL RDW 14.8 (11.5-15.5) % Plt Count 285 (150-450) k/uL Neutrophils % 68 % Lymphocytes % 21 % Monocytes % 7 % Eosinophils % 3 % Basophils % 1 % Neutrophils # 8.5 H (1.3-7.7) k/uL Lymphocytes # 2.7 (1.0-4.8) k/uL Monocytes # 0.8 (0-1.0) k/uL Eosinophils # 0.4 (0-0.7) k/uL Basophils # 0.1 (0-0.2) k/uL Sodium 140 (137-145) mmol/L Potassium 4.5 (3.5-5.1) mmol/L Chloride 105 (98-107) mmol/L Carbon Dioxide 25 (22-30) mmol/L Anion Gap 10 mmol/L BUN 14 (9-20) mg/dL Creatinine 0.97 (0.66-1.25) mg/dL Est GFR (CKD-EPI)AfAm >90 (>60 ml/min/1.73 sqM) Est GFR (CKD-EPI)NonAf >90 (>60 ml/min/1.73 sqM) Glucose 111 H (74-99) mg/dL Plasma Lactic Acid Rob 1.1 (0.7-2.0) mmol/L Calcium 9.5 (8.4-10.2) mg/dL Total Bilirubin 0.6 (0.2-1.3) mg/dL AST 25 (17-59) U/L ALT 54 (21-72) U/L Alkaline Phosphatase 70 (38-126) U/L Total Protein 7.2 (6.3-8.2) g/dL Albumin 4.3 (3.5-5.0) g/dL Disposition Clinical Impression: Perineal abscess Disposition: ADMITTED IP TO THIS [facility] Condition: Stable Referrals: Cesar Duvall DO [Primary Care Provider] - 1-2 days
[2019-01-18 11:40] LABS: ALT 54 U/L (21-72); AST 25 U/L (17-59); African American GFR (CKD) >90 (>60 ml/min/1.73 sqM); Albumin 4.3 g/dL (3.5-5.0); Alkaline Phosphatase 70 U/L (38-126); Anion Gap 10 mmol/L; Blood Urea Nitrogen 14 mg/dL (9-20); Calcium 9.5 mg/dL (8.4-10.2); Carbon Dioxide 25 mmol/L (22-30); Chloride 105 mmol/L (98-107); Glucose 111 mg/dL (74-99); Non-African American GFR(CKD) >90 (>60 ml/min/1.73 sqM); Potassium 4.5 mmol/L (3.5-5.1); Sodium 140 mmol/L (137-145); Total Bilirubin 0.6 mg/dL (0.2-1.3); Total Protein 7.2 g/dL (6.3-8.2)
--- NOTE | 2019-01-18 11:58 | CT ---
EXAMINATION TYPE: CT pelvis w con DATE OF EXAM: 01/18/2019 COMPARISON: None HISTORY: Lump on buttock CT DLP: 1963.9 mGycm Automated exposure control for dose reduction was used. Contrast-enhanced CT of the pelvis was perfor med with bone and soft tissue window settings submitted. CONTRAST: Performed with IV Contrast, patient injected with 100 mL of Isovue 300. FINDINGS: There is skin thickening noted of the right buttock region at the site of clinical concern compatible with cellulitis. There is a small 2.2 x 1.8 cm collection within the right perineum seen best on axi al image 75 of 81 compatible with a small abscess. No additional abscesses identified. Pelvic structu res are within normal limits. IMPRESSION: There is a small 2.2 x 1.8 cm collection within the right perineum seen best on axial image 75 of 81 compatible with a small abscess. SUPERIMPOSED CELLULITIS CHANGES NOTED.
[2019-01-18] MEDS ORDERED: PIPERACILLIN-TAZOBACTAM 3.375 GM in SODIUM CHLORIDE 0.9% 100 ML IVPB STA (12:22)
[2019-01-18] MEDS ORDERED: NALOXONE 0.4 MG/ML 1 ML VIAL IV PRN (12:24)
[2019-01-18] MEDS: HYDROmorphone 0.5 MG/0.5 ML SYRINGE IVP PRN ×4 (14:10→23:13)
[2019-01-18] MEDS ORDERED: METOCLOPRAMIDE 5 MG/ML 2 ML VIAL IVP PRN (15:26)
[2019-01-18] MEDS ORDERED: LIDOCAINE 1% 20 ML VIAL (10MG/ML) FOR IV START INTRADERMA PRN (15:26)
[2019-01-18] MEDS: ONDANSETRON 4 MG/2 ML VIAL IVP PRN (16:28)
[2019-01-18] MEDS: LACTATED RINGERS 1,000 ML IV SCH (16:29)
[2019-01-18] MEDS: KETOROLAC 30 MG/ML 1 ML VIAL IVP SCH ×2 (17:06→20:07)
--- NOTE | 2019-01-18 17:07 | P.GSHP ---
History of Present Illness H&P Date: 01/18/19 Chief Complaint: Right peroneal abscess 38-year-old male presents to the ER with complaints of pain in the right lower buttock/perineal region. This is been present for the last few days. He says he had an area on the left side that his friend lanced for him. He said he f requently gets minor skin infections like this and usually drains them himself. This however has been increasing in pain and he is unable to touch that area because of discomfort. Pain is radiating into the right medial thigh. No history of diabetes. Does have history of staph infection but not MRSA. Computed tomography scan showed a greater than 2 cm abscess with cellulitis. White blood cell count 12. - Review of Systems Comment: The patient denies any acute changes in vision or hearing, no dysphagia or odynophagia, no chest pain or shortness of breath, no dysuria or hematuria, no headache, no runny nose, no rectal bleeding or melena, no unexplained weight loss Past Medical History Past Medical History: No Reported History Additional Past Medical History / Comment(s): Viral meningitis 10 years ago, bacterial meningitis 2018, skin abscesses. History of Any Multi-Drug Resistant Organisms: None Reported Past Surgical History: Appendectomy, Ear Surgery Additional Past Surgical History / Comment(s): Bilateral myringotomy/tubes, benign tumors removed from chest area Past Anesthesia/Blood Transfusion Reactions: No Reported Reaction Smoking Status: Current every day smoker - Past Family History Father Family Medical History: Dementia Mother Family Medical History: Musculoskeletal Disorder, Neurologic Disorder Additional Family Medical History / Comment(s): Parkinson's dx and mental health issues. Medications and Allergies Home Medications Medication Instructions Recorded Confirmed Type No Known Home Medications 01/18/19 01/18/19 History Allergies Allergy/AdvReac Type Severity Reaction Status Date / Time No Known Allergies Allergy Verified 01/18/19 10:48 Surgical - Exam Vital Signs Temp Pulse Resp BP Pulse Ox 98.7 F 94 18 133/89 96 01/18/19 10:27 01/18/19 10:27 01/18/19 10:27 01/18/19 10:27 01/18/19 10:27 Physical exam: General: Well-developed, well-nourished HEENT: Normocephalic, sclerae nonicteric Abdomen: Nontender, nondistended Extremities: No edema, significant tenderness and erythema and fluctuance right posterior perineum, no drainage, pilonidal region with small sinus openings and mild tenderness with some seropurulent drainage Neuro: Alert and oriented Results - Labs 01/18/19 11:08 01/18/19 11:08 Abnormal Lab Results - Last 24 Hours (Table) 01/18/19 01/18/19 Range/Units 11:08 11:08 WBC 12.6 H (3.8-10.6) k/uL Neutrophils # 8.5 H (1.3-7.7) k/uL Glucose 111 H (74-99) mg/dL Diabetes panel 01/18/19 Range/Units 11:08 Sodium 140 (137-145) mmol/L Potassium 4.5 (3.5-5.1) mmol/L Chloride 105 (98-107) mmol/L Carbon Dioxide 25 (22-30) mmol/L BUN 14 (9-20) mg/dL Creatinine 0.97 (0.66-1.25) mg/dL Glucose 111 H (74-99) mg/dL Calcium 9.5 (8.4-10.2) mg/dL AST 25 (17-59) U/L ALT 54 (21-72) U/L Alkaline Phosphatase 70 (38-126) U/L Total Protein 7.2 (6.3-8.2) g/dL Albumin 4.3 (3.5-5.0) g/dL Calcium panel 01/18/19 Range/Units 11:08 Calcium 9.5 (8.4-10.2) mg/dL Albumin 4.3 (3.5-5.0) g/dL Pituitary panel 01/18/19 Range/Units 11:08 Sodium 140 (137-145) mmol/L Potassium 4.5 (3.5-5.1) mmol/L Chloride 105 (98-107) mmol/L Carbon Dioxide 25 (22-30) mmol/L BUN 14 (9-20) mg/dL Creatinine 0.97 (0.66-1.25) mg/dL Glucose 111 H (74-99) mg/dL Calcium 9.5 (8.4-10.2) mg/dL Adrenal panel 01/18/19 Range/Units 11:08 Sodium 140 (137-145) mmol/L Potassium 4.5 (3.5-5.1) mmol/L Chloride 105 (98-107) mmol/L Carbon Dioxide 25 (22-30) mmol/L BUN 14 (9-20) mg/dL Creatinine 0.97 (0.66-1.25) mg/dL Glucose 111 H (74-99) mg/dL Calcium 9.5 (8.4-10.2) mg/dL Total Bilirubin 0.6 (0.2-1.3) mg/dL AST 25 (17-59) U/L ALT 54 (21-72) U/L Alkaline Phosphatase 70 (38-126) U/L Total Protein 7.2 (6.3-8.2) g/dL Albumin 4.3 (3.5-5.0) g/dL Assessment and Plan (1) Perineal abscess Narrative/Plan: Options reviewed with the patient. We'll proceed with incision and drainage at this time. Continue IV antibiotics. The pilonidal region does have some subacute infection as well. No incision and drainage required for that at this time. This may require future pilonidal cystectomy. Current Visit: Yes Status: Acute Code(s): L02.215 - CUTANEOUS ABSCESS OF PERINEUM SNOMED Code(s): 80544808
[2019-01-18] MEDS ORDERED: LIDOCAINE 1% INJ 10MG/ML (20 ML MDV) ONE (18:56)
[2019-01-18] MEDS ORDERED: MIDAZOLAM 2 MG/2 ML VIAL ONE (18:56)
[2019-01-18] MEDS ORDERED: PROPOFOL 10 MG/ML 20 ML VIAL IV ONE (18:56)
[2019-01-18] MEDS ORDERED: fentaNYL (PF) 50 MCG/ML 2 ML AMP ONE (18:56)
[2019-01-18] MEDS ORDERED: SODIUM CHLORIDE 0.9% 100 ML with ceFAZolin 3,000 MG IV ONE ×2 (19:15)
[2019-01-18] MEDS ORDERED: BUPIVACAIN-EPI 0.25%-1:200,000 30 ML VIAL SQ ONE (19:18)
--- NOTE | 2019-01-18 19:35 | P.OP ---
Date of Procedure: 01/18/19 Procedure(s) Performed: PREOPERATIVE DIAGNOSIS: Right perineal abscess POSTOPERATIVE DIAGNOSIS: Same PROCEDURE: Incision and drainage right perineal abscess SURGEON: Ap EBL: 5 mL ANESTHESIA: Gen. COMPLICATIONS: None OPERATIVE PROCEDURE: Patient placed in lithotomy after general anesthesia achieved. The right proximal thigh/perineum prepped and draped sterilely. Elliptical incision was made excising the skin present over the fluctuant abscess site. Entrance into the abscess occurred sharply. Purulent fluid evacuated. Cultures obtained. Site irrigated with saline. No further bleeding or purulence seen. Wound packed with half-inch iodoform gauze. Marcaine used for local anesthesia. Sterile dressings applied. DISPOSITION: Stable to recovery room
[2019-01-18] MEDS: PIPERACILLIN-TAZOBACTAM 3.375 GM in SODIUM CHLORIDE 0.9% 100 ML IVPB SCH (21:01)
[2019-01-18] MEDS: DOCUSATE 100 MG CAP PO SCH (21:01)
[2019-01-19] MEDS: HEPARIN SODIUM,PORCINE 5,000 UNIT/ML 1 ML VIAL SQ SCH ×3 (00:46→15:13)
[2019-01-19] MEDS: HYDROmorphone 1 MG/ML 1 ML SYRINGE IVP PRN ×2 (02:00→04:58)
[2019-01-19] MEDS: PIPERACILLIN-TAZOBACTAM 3.375 GM in SODIUM CHLORIDE 0.9% 100 ML IVPB SCH ×2 (05:05→12:04)
[2019-01-19] MEDS: KETOROLAC 30 MG/ML 1 ML VIAL IVP SCH ×2 (05:54→11:10)
[2019-01-19] MEDS: ONDANSETRON 4 MG/2 ML VIAL IVP PRN (05:56)
[2019-01-19] MEDS: DOCUSATE 100 MG CAP PO SCH (08:34)
--- NOTE | 2019-01-19 12:20 | P.PN ---
<ZabalaAdilia Meme - Last Filed: 01/19/19 12:17> Subjective Progress Note Date: 01/19/19 CHIEF COMPLAINT: Perineal abscess HISTORY OF PRESENT ILLNESS: Patient is status post incision and drainage of right perineal abscess. POD #1. He denies pain or discomfort to surgical site. He reports it has been draining overnight. Cultures are pending. He is hoping to be discharged home today. PHYSICAL EXAM: VITAL SIGNS: Reviewed. GENERAL: Well-developed in no acute distress. HEENT: No sclera icterus. Extraocular movements grossly intact. Moist buccal mucosa. Head is atraumatic, normocephalic. ABDOMEN: Soft. Nondistended. Nontender. NEUROLOGIC: Alert and oriented. Cranial nerves II through XII grossly intact. SKIN: Dressing to perineal region with serosanguineous drainage. ASSESSMENT: 1. Right perineal abscess, status post incision and drainage PLAN: 1. Continue current diet 2. Continue antibiotics 3. Continue daily wound care with iodoform packing 4. Await results of cultures 4. Patient requesting to be discharged home today. Dr. De Souza to re-evaluate patient this afternoon. Nurse practitioner note has been reviewed by physician. Signing provider agrees with the documented findings, assessment, and plan of care. Objective - Vital Signs Vital signs: Vital Signs Temp 98.7 F 01/19/19 04:25 Pulse 78 01/19/19 04:25 Resp 20 01/19/19 04:25 BP 123/66 01/19/19 04:25 Pulse Ox 95 01/19/19 04:25 Intake & Output 01/18/19 01/19/19 01/19/19 18:59 06:59 18:59 Intake Total 850 Output Total 5 Balance 845 Weight 129.274 kg Intake: IV 650 Oral 200 Output: Estimated Blood Loss 5 Other: Voiding Method Toilet # Voids 1 1 1 - Labs CBC & Chem 7: 01/18/19 11:08 01/18/19 11:08 Labs: Microbiology - Last 24 Hours (Table) 01/18/19 19:32 Gram Stain - Preliminary Other - Other Wound Culture - Preliminary 01/18/19 19:32 Gram Stain - Preliminary Other - Other Wound Culture - Preliminary 01/18/19 19:32 Anaerobic Culture - Preliminary Other - Other 01/18/19 19:32 Anaerobic Culture - Preliminary Other - Other <Sam De Souza - Last Filed: 01/19/19 16:21> Subjective As above. Patient doing well. Will plan discharge today. Follow-up in the office 1-2 weeks. Follow-up with Dr. Manning who is familiar with the patient. Prescription for Bactrim will be provided. Objective - Vital Signs Vital signs: Vital Signs Temp 97.4 F L 01/19/19 13:57 Pulse 62 01/19/19 13:57 Resp 16 01/19/19 13:57 BP 124/75 01/19/19 13:57 Pulse Ox 94 L 01/19/19 13:57 Intake & Output 01/18/19 01/19/19 01/19/19 18:59 06:59 18:59 Intake Total 850 100 Output Total 5 Balance 845 100 Weight 129.274 kg Intake: IV 650 100 Piperacillin-Tazobactam 3 100 .375 gm In Sodium Chloride 0.9% 100 ml @ 25 mls/hr IVPB Q8H LAQUITA Rx#: [id number] Oral 200 Output: Estimated Blood Loss 5 Other: Voiding Method Toilet # Voids 1 1 1 - Labs CBC & Chem 7: 01/18/19 11:08 01/18/19 11:08 Labs: Microbiology - Last 24 Hours (Table) 01/18/19 11:08 Blood Culture - Preliminary Blood No Growth after 24 hours 01/18/19 19:32 Gram Stain - Preliminary Other - Other Wound Culture - Preliminary 01/18/19 19:32 Gram Stain - Preliminary Other - Other Wound Culture - Preliminary 01/18/19 19:32 Anaerobic Culture - Preliminary Other - Other 01/18/19 19:32 Anaerobic Culture - Preliminary Other - Other Assessment and Plan (1) Perineal abscess Status: Acute Code(s): L02.215 - CUTANEOUS ABSCESS OF PERINEUM SNOMED Code(s): 01230153
[2019-01-19 14:30] VITALS: BP 124/75; PULSE 62; RESP 16; TEMP 97.4
[2019-01-19] MEDS: LACTATED RINGERS 1,000 ML IV SCH (15:27)
--- NOTE | 2019-01-19 15:48 | P.DS ---
<Adilia Zabala - Last Filed: 01/19/19 15:46> Providers Expected date of discharge: 01/19/19 Hospital Course: 38-year-old male who is status post incision and drainage of right perineal abscess by Dr. De Souza. Patient is doing well postoperatively. Pain controlled on oral medications. Vital signs stable. Patient deemed stable for discharge home today on Bactrim. Patient to continue daily wound changes with packing to perineal region. He is to follow up with Dr. De Souza and Dr. Manning outpatient. Please see EMR for further hospital course details. Discharge Diagnosis: 1. Right perineal abscess, status post incision and drainage Nurse practitioner note has been reviewed by physician. Signing provider agrees with the documented findings, assessment, and plan of care. Patient Condition at Discharge: Stable Plan - Discharge Summary Discharge Rx Participant: No New Discharge Prescriptions: New Sulfamethox-Tmp 800-160Mg [Bactrim DS 800-160 mg] 1 tab PO Q12HR #20 tab Discharge Medication List Sulfamethox-Tmp 800-160Mg [Bactrim DS 800-160 mg] 1 tab PO Q12HR #20 tab 01/19/19 [Rx] Follow up Appointment(s)/Referral(s): Sam De Souza MD [Medical Doctor] - 02/01/19 10:00 am Cesar Duvall DO [Primary Care Provider] - 01/22/19 11:00 am Yusuf Manning MD [STAFF PHYSICIAN] - 02/01/19 3:15 pm Patient Instructions/Handouts: Abscess (GEN) Activity/Diet/Wound Care/Special Instructions: Daily dressing changes with iodoform gauze Tylenol as needed for pain Discharge Disposition: HOME SELF-CARE <Sam De Souza - Last Filed: 01/19/19 16:21> Providers Date of admission: 01/18/19 13:01 Attending physician: Sam De Souza Primary care physician: Cesar Duvall - Discharge Diagnosis(es) (1) Perineal abscess Status: Acute
== END 2019-01-19 15:53 | disposition home or self-care (01) ==
LOC: EC 10:10 → 4MS4W 13:01
PROVIDERS: ADMIT Surgery; ATTEND Surgery
DX: L02.215 Cutaneous abscess of perineum (principal); L03.315 Cellulitis of perineum; G47.33 Obstructive sleep apnea (adult) (pediatric); F17.210 Nicotine dependence, cigarettes, uncomplicated; Z86.61 Personal history of infections of the central nervous system; Z86.19 Personal history of other infectious and parasitic diseases; Z82.0 Family history of epilepsy and other diseases of the nervous system; Z81.8 Family history of other mental and behavioral disorders
CPT/HCPCS: 10060; 96360; 99284; 36415; 80053; 83605; 85025; 87040; 87070; 87205; 87075; 87077; 87186; 72193; G0378 ×2; J2543 ×2; J2250; J1644; J2405 ×2; J0690; J2001; J3010; J1885 ×2; J1170 ×2; J2704; Q9967

== ENCOUNTER 2019-04-05 13:20 | Day surgery (SDC) | payer OTHER ==
[2019-04-04 09:53] VITALS: BMI 36.3
[~2019-04-05 13:20] MED LIST: HYDROmorphone 0.5 MG/0.5 ML SYRINGE IVP PRN; LACTATED RINGERS 1,000 ML IV SCH; LIDOCAINE 1% 20 ML VIAL (10MG/ML) FOR IV START INTRADERMA PRN; Pre Op ABX Message 1 EACH MISC MISCELLANE ONE
[2019-04-05 13:54] VITALS: RESP 16
[2019-04-05] MEDS ORDERED: LIDOCAINE 1% 20 ML VIAL (10MG/ML) FOR IV START INTRADERMA ONE (14:00)
[2019-04-05] MEDS ORDERED: DEXAMETHASONE SOD PHOSPHATE 10 MG/ML 1 ML VIAL IV ONE (14:10)
[2019-04-05] MEDS ORDERED: ONDANSETRON 4 MG/2 ML VIAL IVP ONE (14:10)
[2019-04-05] MEDS ORDERED: GLYCOPYRROLATE 0.2 MG/ML 2 ML VIAL ONE (14:36)
[2019-04-05] MEDS ORDERED: LIDOCAINE 1% INJ 10MG/ML (20 ML MDV) ONE (14:36)
[2019-04-05] MEDS ORDERED: fentaNYL (PF) 50 MCG/ML 2 ML AMP ONE (14:36)
[2019-04-05] MEDS ORDERED: MIDAZOLAM 2 MG/2 ML VIAL ONE (14:36)
[2019-04-05] MEDS ORDERED: SUCCINYLCHOLINE CHLORIDE VIAL 200 MG/10 ML VIAL IV ONE (14:36)
[2019-04-05] MEDS ORDERED: PHENYLEPHRINE-0.9% NACL SYG 1 MG/10 ML SYRINGE ONE (14:36)
[2019-04-05] MEDS ORDERED: PROPOFOL 10 MG/ML 20 ML VIAL IV ONE (14:36)
[2019-04-05] MEDS ORDERED: GELATIN SPONGE,ABSORB (SMALL) 1 EACH SPONGE TOPICAL ONE (15:34)
[2019-04-05] MEDS ORDERED: LIDOCAINE 2% GEL 30 ML TUBE TOPICAL ONE (15:34)
--- NOTE | 2019-04-05 15:49 | P.OP ---
Date of Procedure: 04/05/19 Preoperative Diagnosis: Rectal drainage Questionable rectal fistula Postoperative Diagnosis: Pilonidal cyst Ascending colon polyp Procedure(s) Performed: Rectal exam under anesthesia Colonoscopy with hot snare polypectomy Anesthesia: ROSA Surgeon: Felix Moore Pathology: other (Ascending colon polyp) Condition: stable Disposition: same day Indications for Procedure: This is a 38-year-old male that presents due to consistent drainage from his rectal area. 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 He has not received care for this and over 5 years. He states that this drainage has increased and is worsening. Secondary to this, plan is for colonoscopy and further rectal exam under anesthesia. The patient was explained the risks, and if it's and alternatives to the procedure did provide consent prior to attending the operating suite. Operative Findings: No evidence of rectal fistula, sinus tract appears to be a pilonidal cyst, internal hemorrhoids are noted Description of Procedure: The patient was brought into the operating suite. He was provided sedation by anesthesia and underwent endotracheal intubation. The patient was placed in left lateral decubitus position and a digital rectal exam was performed. Internal hemorrhoids were palpated. An endoscope was then placed in the rectum and advanced to the cecum as identified by landmarks including the appendiceal orifice and the ileocecal valve. The prep was fair. The colon scope was then slowly withdrawn examining for any mucosal and values. The cecum, ascending, transverse, descending and sigmoid colon were visualized adequately. A polyp was noted in the ascending colon. This was removed with hot snare polypectomy. Retroflexion was performed in the rectum and internal hemorrhoids were visible. There was no obvious fistula sinus tract visualized. Excess air was removed, the clots were withdrawn and the procedure terminated. The patient was then transferred to the recovery unit in stable condition. Repeat colonoscopy should be performed in 5 years. The patient was then placed in prone position. He was prepped and draped in regular sterile fashion. A rectal exam was then performed and internal hemorrhoids were noted. Probe was used to examine sinus tract that was superior to the anal opening. On further examination with the probe, it does appear that the patient has a pilonidal cyst with a inferior sinus opening. There was no obvious sinus tract creating a fistula with the anal cavity or the rectum. Internal, type II, hemorrhoids were clearly visualized. There were no obvious anal fissures. A small anal tag was cauterized due to some mild bleeding. The case was concluded. Further discussion will be had with the patient about pilonidal cyst excision in the future.
[2019-04-05 15:54] VITALS: TEMP 97.8
[2019-04-05 16:58] VITALS: BP 101/68; PULSE 73
== END 2019-04-05 17:23 | disposition home or self-care (01) ==
LOC: OR 13:20
PROVIDERS: ATTEND Surgery
DX: D12.2 Benign neoplasm of ascending colon (principal); L05.91 Pilonidal cyst without abscess; K64.1 Second degree hemorrhoids; K64.4 Residual hemorrhoidal skin tags; L72.3 Sebaceous cyst; G47.33 Obstructive sleep apnea (adult) (pediatric); I10 Essential (primary) hypertension; F17.210 Nicotine dependence, cigarettes, uncomplicated; E66.01 Morbid (severe) obesity due to excess calories; Z68.36 Body mass index [BMI] 36.0-36.9, adult; Z87.19 Personal history of other diseases of the digestive system; Z86.19 Personal history of other infectious and parasitic diseases; Z99.89 Dependence on other enabling machines and devices; Z90.49 Acquired absence of other specified parts of digestive tract; Z88.8 Allergy status to other drugs, medicaments and biological substances; Z81.8 Family history of other mental and behavioral disorders; Z98.890 Other specified postprocedural states; Z90.89 Acquired absence of other organs
CPT/HCPCS: 45385; 88305; J2250; J0330; J1100; J2405; J2001; J3010; J2370; J2704; 45380

== ENCOUNTER → 2019-05-24 | Outpatient (CLI) | payer OTHER ==
--- NOTE | 2019-05-24 09:29 | US ---
EXAMINATION TYPE: US liver DATE OF EXAM: 05/24/2019 COMPARISON: NONE CLINICAL HISTORY: R74.8 abnormal levels of other serum enzymes. elevated liver enzymes EXAM MEASUREMENTS: Liver Length: 18.9 cm Gallbladder Wall: 0.2 cm CBD: 0.3 cm Right Kidney: 11.5 x 5.4 x 5.5 cm Pancreas: Obscured by bowel gas Liver: Enlarged. There is increased echogenicity of the hepatic parenchyma with diminished visualizat ion of the portal triads most commonly relating to hepatic steatosis and limiting evaluation for unde rlying hepatic masses. Gallbladder: no evidence of stones Evidence for sonographic Walker's sign: no CBD: appears wnl Right Kidney: no evidence of hydronephrosis IMPRESSION: 1. Sonographic findings most commonly related to hepatic steatosis. Correlate with liver function nan t results. 2. Obscuration of the pancreas by overlying bowel gas.
== END | disposition home or self-care (01) ==
LOC: RADUSWWP 08:27
PROVIDERS: ATTEND Family Medicine
DX: K76.0 Fatty (change of) liver, not elsewhere classified (principal); R14.3 Flatulence
CPT/HCPCS: 76705